=== PATIENT | female | born 1995 | race African-American/Black ===

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

== ENCOUNTER 2017-04-05 20:00 | Emergency (ER) | payer BC, OTHER ==
[~2017-04-05] VITALS: Ht 180.3 cm; Wt 117.0 kg
[2017-04-05 20:02] VITALS: BP 167/114; PULSE 89; RESP 14; TEMP 97.8; O2SAT 100
[2017-04-05] MEDS ORDERED: ALPR0.5T3 PO (20:15)
[2017-04-05] MEDS ORDERED: BUPR75TA PO (20:15)
[2017-04-05] MEDS ORDERED: CLON.5 PO (20:15)
--- NOTE | 2017-04-05 21:05 | PD ---
HPI Chief Complaint: Musculoskeletal Complaint Time Seen by Provider: 21:00 Travel History International Travel<30 days: No Contact w/Intl Traveler<30days: No Traveled to known affect area: No History of Present Illness HPI 21-year-old female presents to the emergency room for evaluation of right foot pain and swelling that occurred after tripping over an extension cord earlier today. Patient states she felt her toes bend all the way back and scraped her leg on the floor. She denies any other injuries. Pain is localized to the right lateral side. Denies ankle pain or swelling. She was able to immediately walk on it but throughout the day the pain and swelling have worsened. She has not taken anything for her symptoms. She has not applied ice. Denies chronic medical conditions or daily medications. PFSH Past Medical History Asthma: Yes Bipolar Disorder: Yes Anxiety: Yes Depression: Yes Developmental Delay: No Diminished Hearing: No Insomnia: Yes Psychiatric: Yes (HX OF PALAFOX ACT ) Respiratory: Yes Immunizations Current: Yes Tetanus Vaccination: > 5 Years Influenza Vaccination: No ?: Not LMP: 04-10=17 Menopausal: No : 0 Past Surgical History Surgical History: No Previous Surgery Social History Alcohol Use: No Tobacco Use: Yes (10 cig) Substance Use: Yes (MARIJUANA) Allergies-Medications (Allergen,Severity, Reaction): Coded Allergies: No Known Allergies (Verified , 04/05/17) Reported Meds & Prescriptions Reported Meds & Active Scripts Active Ibuprofen 800 Mg Tab 800 Mg PO Q8H PRN Reported Klonopin (Clonazepam) 0.5 Mg Tab 0.5 Mg PO HS Bupropion HCl 75 Mg Tab 75 Mg PO DAILY Alprazolam 0.5 Mg Tab 0.5 Mg PO Q8H PRN Fluoxetine (Fluoxetine HCl) 20 Mg Tab 20 Mg PO DAILY Review of Systems Except as stated in HPI: all other systems reviewed are Neg Physical Exam Narrative GENERAL: Well-nourished, obese female in no acute distress. Afebrile. SKIN: Warm and dry. No obvious erythema or ecchymosis. HEAD: Normocephalic. EYES: No scleral icterus. No injection or drainage. NECK: Supple, trachea midline. No JVD or lymphadenopathy. CARDIOVASCULAR: Regular rate and rhythm without murmurs, gallops, or rubs. RESPIRATORY: Breath sounds equal bilaterally. No accessory muscle use. MUSCULOSKELETAL: No cyanosis. Mild to moderate edema of the right lower extremity. Less than 2 second capillary refill distally. 2+ dorsalis pedis pulse. Limited range of motion of the foot secondary to pain. Extreme tenderness to palpation of the fifth metatarsal and top of the foot. No bony tenderness to palpation of the medial or lateral malleolus. Data Data Last Documented VS Vital Signs Date Time Temp Pulse Resp B/P Pulse Ox O2 Delivery O2 Flow Rate FiO2 04/05/17 20:02 97.8 89 14 167/114 100 Orders Foot, Complete ([id number]) (04/05/17 ) Acetamin-Hydrocod 325-5 Mg ([place] 5-325 (04/05/17 21:30) Crutches (04/05/17 21:28) ^ Oliver Bandage (04/05/17 21:28) Ibuprofen (Motrin) (04/05/17 21:30) MDM Medical Decision Making Medical Screen Exam Complete: Yes Emergency Medical Condition: Yes Medical Record Reviewed: Yes Differential Diagnosis Fracture versus sprain versus strain versus contusion Narrative Course 21-year-old female presents to the emergency room for evaluation of right foot pain and swelling after tripping earlier today. Patient hyperextended her toes upon falling. Physical exam reveals obvious erythema or ecchymosis. There is significantly increased warmth of the right foot moderate edema localized over the top of the foot and under the right lateral malleolus. No tenderness to palpation of the medial or lateral malleoli. Less than 2 second capillary refill distally and 2+ dorsalis pedis pulse. Normal sensation distally. Full range of motion secondary to pain. X-ray of the foot is negative for acute bony abnormality. History and physical exam consistent with sprain. Patient placed in Oliver wrap and discharged with orthopedic instructions, crutches, and prescription for ibuprofen. Told to follow up with the primary care physician or return to the emergency room for worsening symptoms. She understands and agrees to plan. Diagnosis Primary Impression: Right foot sprain Qualified Code: S93.601A - Right foot sprain, initial encounter Referrals: Primary Care Physician Patient Instructions: Foot Sprain (ED), General Instructions Additional Instructions: Rest and drink plenty of fluids. No weightbearing for the first and bear weight as tolerated. Take ibuprofen with food as directed, as needed for pain. Apply ice to the affected area for 20 minutes at a time, as needed for pain and swelling. Follow-up with a primary care physician. Return to the emergency room for worsening symptoms. Med/Other Pt SpecificInfo: Prescription(s) given Scripts Ibuprofen 800 Mg [id number] Mg PO Q8H PRN (Pain/Inflammation) #21 TAB Ref 0 Prov:Lobito Sosa MD 04/05/17 Disposition: 01 DISCHARGE HOME Condition: Stable Cathryn Gunter April 05, 2017 21:05
--- NOTE | 2017-04-05 21:20 | RADHPO ---
EXAM DATE/TIME: 04/05/2017 21:00 [facility] COMPARISON: No previous studies available for comparison. INDICATIONS : Right lateral foot pain post fall. MEDICAL HISTORY : None. SURGICAL HISTORY : None. ENCOUNTER: Initial ACUITY: 1 day PAIN SCORE: 8/10 LOCATION: Right lateral foot FINDINGS: Three view examination of the right foot demonstrates no soft tissue swelling, dislocation, or fractu re. The tarsal bones appear intact. The interphalangeal and metatarsophalangeal joints are intact. The calcaneus is intact. Bony mineralization is normal. CONCLUSION: No fracture or subluxation of the right foot. Rodrigue Rizzo MD on April 05, 2017 at 21:17 Board Certified Radiologist. This report was verified electronically.
[2017-04-05] MEDS ORDERED: ACETAMINOPHEN/HYDROcodone 325 MG/5 MG TAB PO ONE (21:30)
[2017-04-05] MEDS ORDERED: IBUPROFEN 800 MG TAB PO ONE (21:30)
[2017-04-05] MEDS ORDERED: IBUP800T23 PO (21:32)
== END 2017-04-05 22:16 | disposition home or self-care (01) ==
LOC: PHEFT 20:00
DX: S93.601A Unspecified sprain of right foot, initial encounter (principal); J45.909 Unspecified asthma, uncomplicated; F17.210 Nicotine dependence, cigarettes, uncomplicated
CPT/HCPCS: 73630; 99283; E0113

== ENCOUNTER 2017-04-11 07:16 | Emergency (ER) | payer BC ==
[~2017-04-11] VITALS: Ht 182.9 cm; Wt 120.5 kg
[~2017-04-11 07:16] MED LIST changes: +ALPR0.5T3 PO; +BUPR75TA PO; +CLON.5 PO; -DEXT5CAP3 PO; +IBUP800T23 PO; -LORA-392 PO; -PROT40TA PO; -TRAM50TA PO; -TYLE325T PO
[2017-04-11 07:31] VITALS: BP 140/98; PULSE 92; RESP 16; TEMP 98.9; O2SAT 100
--- NOTE | 2017-04-11 07:39 | PD ---
HPI Chief Complaint: Complaint Time Seen by Provider: 07:38 Travel History International Travel<30 days: No Contact w/Intl Traveler<30days: No Traveled to known affect area: No History of Present Illness HPI 21-year-old female presents to the emergency Department with complaint of dysuria, urgency, frequency 2 days. Denies hematuria. Denies abdominal pain, low back pain. Denies fever, vomiting. Denies vaginal discharge, odor, itch. Has not taken any medications or tried any treatments to alleviate her symptoms. No known relieving or aggravating factors. Last menstrual period was March 11. Is sexually active and no contraception use. No known allergies. Has no other medical complaints. No other modifying factors or associated signs and symptoms. PFSH Past Medical History Asthma: Yes Bipolar Disorder: Yes Anxiety: Yes Depression: Yes Developmental Delay: No Diminished Hearing: No Insomnia: Yes Psychiatric: Yes (HX OF PALAFOX ACT ) Respiratory: Yes Immunizations Current: Yes ?: Not LMP: 03/11/17 Menopausal: No : 0 Social History Alcohol Use: No Tobacco Use: Yes (10 cig) Substance Use: Yes (MARIJUANA) Allergies-Medications (Allergen,Severity, Reaction): Coded Allergies: No Known Allergies (Verified , 04/11/17) Reported Meds & Prescriptions Reported Meds & Active Scripts Active Pyridium (Phenazopyridine HCl) 100 Mg Tab 100 Mg PO Q8H PRN Keflex (Cephalexin) 500 Mg Cap 500 Mg PO Q12H 7 Days Ibuprofen 800 Mg Tab 800 Mg PO Q8H PRN Reported Klonopin (Clonazepam) 0.5 Mg Tab 0.5 Mg PO HS Bupropion HCl 75 Mg Tab 75 Mg PO DAILY Alprazolam 0.5 Mg Tab 0.5 Mg PO Q8H PRN Fluoxetine (Fluoxetine HCl) 20 Mg Tab 20 Mg PO DAILY Review of Systems Except as stated in HPI: all other systems reviewed are Neg Physical Exam Narrative GENERAL: Well-nourished, well-developed female female patient, in no acute distress; afebrile, nontoxic-appearing SKIN: Warm and dry. No rash. HEAD: Atraumatic. Normocephalic. EYES: Pupils equal and round. No scleral icterus. No injection or drainage. ENT: Mucosa pink and moist. NECK: Trachea midline. CARDIOVASCULAR: Regular rate. RESPIRATORY: No accessory muscle use. GASTROINTESTINAL: Abdomen soft, non-tender, nondistended. Hepatic and splenic margins not palpable. Bowel sounds are active 4 quadrants. Bladder nontender and nondistended. MUSCULOSKELETAL: No obvious deformities. No clubbing. No cyanosis. No edema. BACK: No CVA tenderness NEUROLOGICAL: Awake and alert. Oriented 3. No obvious cranial nerve deficits. Motor grossly within normal limits. Normal speech. Moves all extremities. 5/5 strength to all extremities. PSYCHIATRIC: Appropriate mood and affect; insight and judgment normal. Data Data Last Documented VS Vital Signs Date Time Temp Pulse Resp B/P Pulse Ox O2 Delivery O2 Flow Rate FiO2 04/11/17 07:31 98.9 92 16 140/98 100 Room Air Orders Urinalysis - C+S If Indicated (04/11/17 07:37) Ed Urine Pregnancytest Poc (04/11/17 07:42) Urine Culture (04/11/17 07:42) Labs Laboratory Tests Test 04/11/17 07:42 Urine Color YELLOW Urine Turbidity HAZY Urine pH 6.0 Urine Specific [place] 1.025 Urine Protein 30 mg/dL Urine Glucose (UA) NEG mg/dL Urine Ketones NEG mg/dL Urine Occult Blood SMALL Urine Nitrite NEG Urine Bilirubin NEG Urine Urobilinogen LESS THAN 2.0 MG/DL Urine Leukocyte Esterase LARGE Urine RBC 6 /hpf Urine WBC 139 /hpf Urine Squamous Epithelial 4 /hpf Cells Urine Bacteria FEW /hpf Urine Mucus FEW /lpf Microscopic Urinalysis Comment CULTURE INDICATED MDM Medical Decision Making Medical Screen Exam Complete: Yes Emergency Medical Condition: Yes Medical Record Reviewed: Yes Differential Diagnosis Cystitis, urinary tract infection, pyelonephritis Narrative Course 21-year-old female with dysuria. Denies vaginal symptoms. Denies fever, vomiting. Last menstrual period March 11. Is sexually active and no contraception use. Urine negative. Urinalysis ordered. 0854: Urinalysis was signs of infection. Urine culture pending. Keflex and Pyridium prescribed for home. Patient verbalizes understanding and agreement with treatment plan. Patient is medically cleared and stable for discharge. Discussed reasons to return to the emergency department. Instructed patient to follow up with primary care provider. Patient agrees with treatment plan. The patients vital signs are stable and the patient is stable for outpatient follow- up and treatment. Patient discharged home, stable and in no acute distress. Diagnosis Primary Impression: Urinary tract infection Qualified Code: N39.0 - Urinary tract infection without hematuria, site unspecified Referrals: Primary Care Physician Patient Instructions: General Instructions, Urinary Tract Infection in Women ( ED) Departure Forms: School Release, Return to School Date: April 11, 2017 Tests/Procedures, Work Release Enter return to work date: April 11, 2017 Additional Instructions: Take antibiotics as prescribed and complete full course Take Pyridium for bladder spasms: Pyridium will turn your urine bright orange Drink plenty of fluids Maintain good personal hygiene Follow-up with primary care provider Return to the emergency department immediately with worsening of symptoms Med/Other Pt SpecificInfo: Prescription(s) given Scripts Phenazopyridine (Pyridium)100 Mg [id number] Mg PO Q8H PRN (DYSURIA) #10 TAB Ref 0 Prov:Dulce Contreras 04/11/17 Cephalexin (Keflex)500 Mg [id number] Mg PO Q12H 7 Days Ref 0 Prov:Dulce Contreras 04/11/17 Disposition: 01 DISCHARGE HOME Condition: Stable Dulce Contreras April 11, 2017 07:39
[2017-04-11] MEDS ORDERED: PHEN0.4T PO (07:46)
[2017-04-11] MEDS ORDERED: CEPH-460 PO (07:46)
[2017-04-11 08:38] LABS: BACTERIA, URINE FEW /hpf; BLOOD, URINE SMALL (NEG); COMMENT (UR) CULTURE INDICATED; CULTURE IF INDICATED CULTURE INDICATED; GLUCOSE,URINE NEG (NEG); KETONE, URINE NEG (NEG); MUCUS URINE FEW /lpf (OCC); NITRITE,URINE NEG (NEG); SQUAMOUS EPITHELIAL CELL URINE 4 /hpf (0-5); URINE COLOR YELLOW (YELLW/STRAW)
== END 2017-04-11 09:12 | disposition home or self-care (01) ==
LOC: NEPK 07:16
DX: N39.0 Urinary tract infection, site not specified (principal); B96.20 Unspecified Escherichia coli [E. coli] as the cause of diseases classified elsewhere; Z72.0 Tobacco use; F12.90 Cannabis use, unspecified, uncomplicated
CPT/HCPCS: 81001; 84703; 87077; 87086; 87186; 99283

== ENCOUNTER 2017-06-07 05:22 | Inpatient (IN) | payer BC ==
[~2017-06-07] VITALS: Ht 182.9 cm; Wt 113.2 kg
[2017-06-07] VITALS (12 sets, daily range): BP systolic 89–161; BP diastolic 53–104; PULSE 88–122; RESP 16–24; TEMP 97.8–99.5; O2SAT 73–100
[~2017-06-07 05:22] MED LIST changes: +CEPH-460 PO; +PHEN0.4T PO
[2017-06-07] MEDS ORDERED: NALOXONE HCL 2 MG/2 ML VIAL ONE (05:23)
[2017-06-07] MEDS ORDERED: NALOXONE HCL 0.4 MG/ML AMP IV PUSH ONE (05:45)
[2017-06-07] MEDS ORDERED: RESP: ALBUTEROL 2.5 MG/IPRATROPIUM 0.5 MG NEB (SCH) NEB ONE (05:45)
[2017-06-07] MEDS ORDERED: SODIUM CHLOR 0.9% 1000 ML INJ 1,000 ML IV ONE (05:45)
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
[2017-06-07 09:08] LABS: BASOPHIL # 0.1 TH/MM3 (0-0.2); BASOPHIL % 0.2 % (0.0-2.0); EOSINOPHIL # 0.1 TH/MM3 (0-0.4); EOSINOPHIL % 0.3 % (0.0-4.0); HEMATOCRIT 39.5 % (35.0-46.0); HEMO FLAGS DIFF FINAL; LYMPH % 11.5 % (9.0-44.0); LYMPHOCYTE # 2.9 TH/MM3 (1.0-4.8); MEAN CELL VOLUME 83.1 FL (80.0-100.0); MEAN CORPUSCULAR HEMOGLOBIN 25.2 PG (27.0-34.0); MEAN CORPUSCULAR HGB CONC 30.4 % (32.0-36.0); PLATELET COUNT 155 TH/MM3 (150-450); RED BLOOD COUNT 4.75 MIL/MM3 (4.00-5.30); RED CELL DISTRIBUTION WIDTH 13.7 % (11.6-17.2); WHITE BLOOD COUNT 25.3 TH/MM3 (4.0-11.0)
--- NOTE | 2017-06-07 09:30 | PD ---
Physical Exam Date Seen by Provider: Jun 07, 2017 Time Seen by Provider: 07:00 Narrative Patient was signed out to me by Dr. Adkins at 7 AM at change of shift. We are waiting laboratory tests. The patient comes in after reportedly snorting heroin. 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 Apparently her O2 sats were low and she received 0.4 mg of Narcan. This brought her O2 saturations to 93%. She received a second dose of IVD Narcan at 0.4 mg. She did wake up and reported that she had been using the drugs as above. She denies any fevers, chills. She denies any previous health problems. She was noted to be in atrial fibrillation with a rate of 110. Her blood pressure was also low when she initially arrived. She received 1 L of IVD fluids. She is receiving her second at this time. Data Data Last Documented VS Vital Signs Date Time Temp Pulse Resp B/P Pulse Ox O2 Delivery O2 Flow Rate FiO2 06/07/17 10:00 88 18 106/71 100 Non-Rebreather 15 06/07/17 05:48 100 06/07/17 05:26 97.8 Orders Naloxone Inj (Narcan Inj) (06/07/17 05:23) Naloxone Inj (Narcan Inj) (06/07/17 05:45) Albuterol-Ipratropium Neb (Duoneb Neb) (06/07/17 05:45) Sodium Chlor 0.9% 1000 Ml Inj (Ns 1000 M (06/07/17 05:45) Electrocardiogram (06/07/17 05:23) Complete Blood Count With Diff (06/07/17 07:03) Comprehensive Metabolic Panel (06/07/17 07:03) Blood Culture (06/07/17 07:03) Troponin I (06/07/17 07:03) Thyroid Stimulating Hormone (06/07/17 07:03) Insulin Human Regular Inj (Novolin R Inj (06/07/17 10:15) Beta Hcg (Quant/Titer) (06/07/17 10:14) Place In Observation (06/07/17 ) Vital Signs (Adult) Q4H (06/07/17 10:18) Commercial Lending Relationship Manager / Telemetry .CONTINUOUS (06/07/17 10:18) Diet 1800 Ada Cons Carb (06/07/17 Lunch) Sodium Chlor 0.9% 1000 Ml Inj (Ns 1000 M (06/07/17 10:18) Sodium Chloride 0.9% Flush (Ns Flush) (06/07/17 10:30) Sodium Chloride 0.9% Flush (Ns Flush) (06/07/17 21:00) Basic Metabolic Panel (Bmp) (06/08/17 06:00) Complete Blood Count With Diff (06/08/17 06:00) Creatine Kinase (Cpk) (06/07/17 10:18) Creatine Kinase (Cpk) (06/07/17 16:18) Troponin I (06/07/17 10:18) Troponin I (06/07/17 16:18) Hepatic Functional Panel (06/08/17 06:00) Heparin Inj (Heparin Inj) (06/07/17 10:30) Naloxone Inj (Narcan Inj) (06/07/17 10:30) Docusate Sodium-Senna (Danya-Colace) (06/07/17 21:00) Magnesium Hydroxide Liq (Milk Of Magnesi (06/07/17 10:30) Sennosides (Senokot) (06/07/17 10:30) Bisacodyl Supp (Dulcolax Supp) (06/07/17 10:30) Lactulose Liq (Lactulose Liq) (06/07/17 10:30) Hemoglobin (Hgb) A1c (06/07/17 10:22) Labs Laboratory Tests Test 06/07/17 06:45 White Blood Count 25.3 TH/MM3 Red Blood Count 4.75 MIL/MM3 Hemoglobin 12.0 GM/DL Hematocrit 39.5 % Mean Corpuscular Volume 83.1 FL Mean Corpuscular Hemoglobin 25.2 PG Mean Corpuscular Hemoglobin 30.4 % Concent Red Cell Distribution Width 13.7 % Platelet Count 155 TH/MM3 Mean Platelet Volume 11.5 FL Neutrophils (%) (Auto) 87.0 % Lymphocytes (%) (Auto) 11.5 % Monocytes (%) (Auto) 1.0 % Eosinophils (%) (Auto) 0.3 % Basophils (%) (Auto) 0.2 % Neutrophils # (Auto) 22.0 TH/MM3 Lymphocytes # (Auto) 2.9 TH/MM3 Monocytes # (Auto) 0.3 TH/MM3 Eosinophils # (Auto) 0.1 TH/MM3 Basophils # (Auto) 0.1 TH/MM3 CBC Comment DIFF FINAL Differential Comment Sodium Level 137 MEQ/L Potassium Level 3.6 MEQ/L Chloride Level 101 MEQ/L Carbon Dioxide Level 19.9 MEQ/L Anion Gap 16 MEQ/L Blood Urea Nitrogen 11 MG/DL Creatinine 1.55 MG/DL Estimat Glomerular Filtration 52 ML/MIN Rate Random Glucose 337 MG/DL Calcium Level 8.8 MG/DL Total Bilirubin 0.4 MG/DL Aspartate Amino Transf 27 U/L (AST/SGOT) Alanine Aminotransferase 26 U/L (ALT/SGPT) Alkaline Phosphatase 101 U/L Troponin I 0.08 NG/ML Total Protein 7.3 GM/DL Albumin 3.3 GM/DL Thyroid Stimulating Hormone 0.749 uIU/ML 3rd Gen [facility] Medical Record Reviewed: Yes Supervised Visit with RYLEE: No Differential Diagnosis Acute overdose versus endocarditis versus sepsis Narrative Course 21-year-old female presents after snorting heroin. The patient was obtunded when EMS arrived. They gave her 0.4 Narcan which woke her up and brought her O2 sat up to 93%. The patient was still sedated when she arrived and was given another dose of 0.4 mg of Narcan. Initial cardiac EKG showed A. fib with RVR. Second one was repeated which showed A. fib with rate of 111. Labs show a glucose greater than 300. There is also acute kidney injury. She's been given a liter of IVD fluid followed by a second liter. Cardiac enzymes show a troponin of 0.08. White count was 25,000. Concern here is that this could be atypical presentation of endocarditis. She was afebrile when she arrived. The case was discussed with Dr. Anderson, [facility] hospitalist who covers for Dr. Barney Iniguez, patient's PCP. She'll be placed on cardiac telemetry given the cardiac findings and the elevated troponin. Intravenous antibiotics have been held at this point. Diagnosis Primary Impression: Opiate or related narcotic overdose Additional Impressions: Paroxysmal atrial fibrillation Hyperglycemia Acute kidney injury Elevated troponin Admitting Information Admitting Physician Requests: Admit Condition: Stable Zeb Fan MD Jun 07, 2017 09:30
[2017-06-07 09:31] LABS: ALT (GPT) 26 U/L (9-42)
[2017-06-07 09:38] LABS: ANION GAP 16 MEQ/L (5-15); AST (GOT) 27 U/L (16-38); BICARBONATE 19.9 MEQ/L (21.0-32.0); BLOOD UREA NITROGEN 11 MG/DL (7-18); CHLORIDE 101 MEQ/L (98-107); GLOMERULAR FILTRATION RATE 52 ML/MIN (>89); SODIUM (NA) 137 MEQ/L (136-145)
[2017-06-07 09:41] LABS: ALKALINE PHOSPHATASE 101 U/L (45-117); TOTAL BILIRUBIN ADULT 0.4 MG/DL (0.2-1.0)
[2017-06-07 09:50] LABS: POTASSIUM 3.6 MEQ/L (3.5-5.1)
[2017-06-07] MEDS ORDERED: INSULIN HUMAN REGULAR 1,000 UNITS/10 ML VIAL IV PUSH ONE (10:15)
[2017-06-07] MEDS ORDERED: MAGNESIUM HYDROXIDE SUSP 30 ML CUP PO PRN (10:30)
[2017-06-07] MEDS ORDERED: BISACODYL 10 MG SUPP RECTAL PRN (10:30)
[2017-06-07] MEDS ORDERED: SENNOSIDES 8.6 MG TAB PO PRN (10:30)
[2017-06-07] MEDS ORDERED: SODIUM CHLORIDE 0.9% FLUSH 10 ML FLUSH IV FLUSH PRN (10:30)
[2017-06-07] MEDS ORDERED: NALOXONE HCL 0.4 MG/ML AMP IV PRN (10:30)
[2017-06-07] MEDS ORDERED: DEXTROSE 50% IN WATER 50 ML VIAL(D50) IV PRN (10:30)
[2017-06-07] MEDS ORDERED: LACTULOSE SYRUP 20 GM/30 ML CUP PO PRN (10:30)
[2017-06-07] MEDS ORDERED: GLUCAGON 1 MG/ML VIAL OTHER PRN (10:30)
[2017-06-07 10:51] LABS: BETA HCG QUANT LESS THAN 1 MIU/ML (0-5)
[2017-06-07] MEDS: INSULIN ASPART SUPPLEMENTAL SCALE SQ SCH ×3 (11:00→21:00)
[2017-06-07] MEDS: SODIUM CHLOR 0.9% 1000 ML INJ 1,000 ML IV SCH ×2 (12:00→14:22)
--- NOTE | 2017-06-07 13:22 | EKG ---
Date Performed: 06/07/2017 Time Performed: 05:23:22 PTAGE: 21 years EKG: ATRIAL FIBRILLATION WITH RAPID VENTRICULAR RESPONSE WITH ABERRANT CONDUCTION OR VENTRICULAR PREMATURE COMPLEXES NONSPECIFIC ST & T-WAVE ABNORMALITY ABNORMAL RHYTHM ECG NO PREVIOUS TRACING DOCTOR: Marciano Ruiz Interpretating Date/Time 06/07/2017 13:21:54
--- NOTE | 2017-06-07 13:33 | EKG ---
Date Performed: 06/07/2017 Time Performed: 06:58:23 PTAGE: 21 years EKG: ATRIAL FIBRILLATION WITH RAPID VENTRICULAR RESPONSE NONSPECIFIC T-WAVE ABNORMALITY ABNORMAL RHYTHM ECG Compared to prior tracing no significant change PREVIOUS TRACING : 06/07/2017 05.23 DOCTOR: Marciano Ruiz Interpretating Date/Time 06/07/2017 13:30:53
--- NOTE | 2017-06-07 13:49 | EKG ---
Date Performed: 06/07/2017 Time Performed: 10:13:43 PTAGE: 21 years EKG: Sinus rhythm NORMAL ECG INTERPRETATION BASED ON A DEFAULT AGE OF 40 YEARS PREVIOUS TRACING : 06/07/2017 06.58 Compared to the prior study, normal sinus rhythm has replaced atrial fibrillation. DOCTOR: Marciano Ruiz Interpretating Date/Time 06/07/2017 13:48:09
[2017-06-07] MEDS: HEPARIN SODIUM - SQ 10,000 UNITS/ML VIAL SQ SCH (14:27)
--- NOTE | 2017-06-07 15:47 | MH ---
cc: SEAN IYER MD DATE OF ADMISSION 06/07/2017 CHIEF COMPLAINT Drug overdose. HISTORY OF PRESENT ILLNESS This is a 21-year-old -[place] obese female with past medical-surgical history significant for asthma, bipolar disorder, anxiety, depression, history of [place] in the past, came to the [facility] ER after heroin overdose. She admitted snorting heroin which she thinks was laced with fentanyl. Per the EMS they found her outside with low oxygen saturation. The patient was given 0.4 milligrams Narcan and oxygen saturation improved to 93%. There is no sign of trauma where she picked up. No other complaint. When I examined the patient the patient awake, alert, oriented x4, have no complaints or any problems and other than that nothing significant. PAST MEDICAL-SURGICAL HISTORY As dictated above. SOCIAL HISTORY Denies drinking. Smokes on a daily basis and abuses marijuana and also heroin. ALLERGIES NO KNOWN DRUG ALLERGIES. MEDICATIONS Include: 1. Clonidine 0.5 milligrams p.o. at bedtime. 2. Bupropion 75 milligrams p.o. daily. 3. Alprazolam 0.5 milligrams p.o. q. 8-hour p.r.n. anxiety. 4. Fluoxetine 20 milligrams p.o. daily. REVIEW OF SYSTEMS All of the review of system is negative at the time of examination. PHYSICAL EXAMINATION GENERAL: This is a 21-year-old female sitting on the bed, not in acute distress. VITAL SIGNS: Temperature 97.8, heart rate 88, respiration 20, blood pressure 124/78, O2 saturation 97% 3 liters nasal cannula. HEENT: Normocephalic, atraumatic. EOMI. PERRL. Oral mucosa moist. NECK: Neck is supple. No visible thyromegaly or neck mass. Trachea central. CVS: Regular rate and rhythm. LUNGS: Respirations clear to auscultation bilaterally. ABDOMEN: Soft, nontender. Bowel sounds. EXTREMITIES: No cyanosis or clubbing. Full range of motion of all extremities. NEURO: Awake, alert, oriented x4. No focal deficits. SKIN: Warm and dry. PSYCH: The patient has cooperative mood, affect is normal. LABORATORY DATA Include CBC showed WBC count 25.3 high, MCH is 25.2 low, MCHC is 30.4 low, MPV 11.5 high, neutrophil is 87.0 high. BMP totally unremarkable except for carbon dioxide 19.9 low, anion gap 16 high, creatinine 1.55 high, GFR 52 low, glucose random 337 high. Troponin-I 0.08 high, albumin 3.3 low. HCG quantitative less than 1. Blood culture done negative so far. ASSESSMENT/PLAN 1. This is a 21-year-old female who came to the ER diagnosed with loss of consciousness after heroin abuse. The patient got Narcan and after that the patient improved. 2. Hyperglycemia. Will check hemoglobin A1C and will monitor blood sugar. 3. Acute renal failure. Will give IV fluid and check BUN and creatinine. 4. Elevated troponin. I will check serial cardiac enzymes. Consult cardiology. 5. I will check UA and CT chest without contrast to rule out pneumonia. 6. DVT prophylaxis heparin 5000 units subcutaneous twice a day. 7. GI prophylaxis Protonix 40 milligrams p.o. daily. 8. We are going to manage the patient on a daily basis and make recommendation on a daily basis. Sean Iyer MD EA/LUIS ALBERTO /3:15 PM /3:34 PM
[2017-06-07] MEDS: FLUoxetine HCL 20 MG CAP PO SCH (17:20)
[2017-06-07] MEDS: cefTRIAXone INJ 1,000 MG in SODIUM CHLORIDE 0.9% INJ 100 ML IV SCH (17:20)
[2017-06-07] MEDS: buPROPion HCL 75 MG TAB PO SCH (17:20)
[2017-06-07 17:31] LABS: BLOOD, URINE NEG (NEG); COMMENT (UR) CULTURE INDICATED; CULTURE IF INDICATED CULTURE INDICATED; GLUCOSE,URINE NEG (NEG); KETONE, URINE NEG (NEG); NITRITE,URINE NEG (NEG); SQUAMOUS EPITHELIAL CELL URINE 6 /hpf (0-5); URINE COLOR YELLOW (YELLW/STRAW)
[2017-06-07 17:34] LABS: AMPHETAMINE, URINE NEG (NEG); BARBITURATES, URINE NEG (NEG); COCAINE, URINE NEG (NEG)
[2017-06-07 18:01] LABS: CREATINE KINASE 302 U/L (26-192)
[2017-06-07 18:07] LABS: ALKALINE PHOSPHATASE 76 U/L (45-117); ALT (GPT) 24 U/L (9-42); ANION GAP 8 MEQ/L (5-15); AST (GOT) 18 U/L (16-38); BICARBONATE 27.2 MEQ/L (21.0-32.0); BLOOD UREA NITROGEN 9 MG/DL (7-18); CHLORIDE 107 MEQ/L (98-107); GLOMERULAR FILTRATION RATE 104 ML/MIN (>89); SODIUM (NA) 142 MEQ/L (136-145); TOTAL BILIRUBIN ADULT 0.4 MG/DL (0.2-1.0)
--- NOTE | 2017-06-07 18:55 | RADRPT ---
EXAM DATE/TIME: 06/07/2017 18:41 [place] COMPARISON: No previous studies available for comparison. INDICATIONS : Evaluate for leukocytosis. RADIATION DOSE: 9.89 CTDIvol (mGy) MEDICAL HISTORY : None SURGICAL HISTORY : None. ENCOUNTER: Initial ACUITY: 1 day PAIN SCALE: 3/10 LOCATION: Bilateral chest TECHNIQUE: Volumetric scanning of the chest was performed. Using automated exposure control and adjustment of t he mA and/or kV according to patient size, radiation dose was kept as low as reasonably achievable to obtain optimal diagnostic quality images. DICOM format image data is available electronically for r eview and comparison. FINDINGS: LUNGS: Patchy airspace disease is present in both lungs consistent with an inflammatory process. PLEURAE: There is no pleural thickening or pleural effusion. MEDIASTINUM: The heart and great vessels demonstrate no acute abnormality. There is no mediastinal or hilar lymph adenopathy. AXILLAE: Within normal limits. No lymphadenopathy. MUSCULOSKELETAL: Within normal limits for patient age. MISCELLANEOUS: The visualized upper abdominal organs demonstrate no acute abnormality. CONCLUSION: Patchy airspace disease in both lungs with pain perihilar distribution consistent with an inflammator y process. Deangelo Moran MD FACR on June 07, 2017 at 18:51 Board Certified Radiologist. This report was verified electronically.
[2017-06-07] MEDS: SODIUM CHLORIDE 0.9% FLUSH 10 ML FLUSH IV FLUSH SCH (21:35)
[2017-06-07] MEDS: DOCUSATE SODIUM 50 MG/SENNA 8.6 MG TAB PO SCH (21:35)
[2017-06-07] MEDS: clonazePAM 0.5 MG TAB PO SCH (21:35)
[2017-06-08] VITALS (10 sets, daily range): BP systolic 116–127; BP diastolic 58–76; PULSE 101–114; RESP 18–20; TEMP 98.5–100.4; O2SAT 95–100
--- NOTE | 2017-06-08 00:19 | MB ---
cc: VISH GUO DO DATE OF CONSULTATION June 07, 2017 REASON FOR CONSULTATION Elevated troponin. HISTORY OF PRESENT ILLNESS Hyacinth Chris is a pleasant 21-year-old female who presented to [facility] Emergency Room by EMS after heroin overdose. She admits to snorting heroin which she thinks was laced with Fentanyl. Per EMS they found her outside unresponsive with oxygen level in the "teens." She was given Narcan and her oxygen saturation improved to 93%. During the workup she was found to have an elevated troponin of 0.11 and I was consulted for such. In seeing her she states that she has chest pain when she takes a deep breath in. She also notes that she feels like her lungs burn while breathing. Otherwise, she denies any other symptoms. PAST MEDICAL HISTORY 1. Asthma. 2. Bipolar disorder. 3. Anxiety/depression. PAST SURGICAL HISTORY Denies. ALLERGIES NO KNOWN DRUG ALLERGIES. MEDICATIONS 1. Bupropion 75 milligrams daily. 2. Fluoxetine 20 milligrams daily 3. Klonopin 0.5 milligrams every night. FAMILY HISTORY Denies premature coronary artery disease or sudden cardiac within the family. SOCIAL HISTORY Denies alcohol abuse. She does smoke around a pack of cigarettes a day. She also uses marijuana. Admits to snorting heroin. REVIEW OF SYSTEMS 14-systems were reviewed including osteopathic, pertinent positives and negatives above otherwise negative. PHYSICAL EXAMINATION VITAL SIGNS: Temperature 98.4, heart rate 100, blood pressure 128/70, respirations 24, pulse ox 94% on 3 liters. GENERAL: In general the patient appears well in no acute distress, alert, awake and oriented x3. HEENT: Extraocular muscles intact. Mucous membranes moist. NECK: Neck is supple. No JVD at 45 degrees. No carotid bruits heard bilaterally. Carotid upstroke is brisk in nature. HEART: Heart is regular rate and rhythm. Positive first and second heart sounds with no noted murmurs, gallops or rubs. LUNGS: Lungs have decreased breath sounds bilaterally. ABDOMEN: Soft, nontender, nondistended. No organomegaly noted. EXTREMITIES: Show no clubbing, cyanosis or edema. Femoral and distal pulses intact bilaterally. NEUROLOGICALLY: No focal deficits. SKIN: Warm, dry and intact. OSTEOPATHIC: No kyphoscoliosis, lordosis or paraspinal tender points. LABORATORY FINDINGS White blood cells 25.3, hemoglobin 12.0, hematocrit 39.5, platelets 155. Potassium 4.0, BUN 9, creatinine 0.85. Troponin 0.11. CARDIOLOGY STUDIES Electrocardiogram (June 07, 2017 at 06:58) atrial fibrillation with rapid ventricular response, nonspecific ST-T wave changes. IMPRESSION 1. Opioid overdose after snorting heroin, possibly laced with fentanyl. 2. Loss of consciousness after heroin abuse. 3. Hypoxia with EMS arriving and her pulse ox in the teens. 4. Acute kidney injury. 5. Elevated troponin most likely type 2 due to heroin overdose as well as hypoxia. 6. Leukocytosis. 7. CT of the chest showing patchy airspace disease most likely inflammatory in nature. 8. Tobacco abuse. 9. History of asthma. RECOMMENDATIONS 1. Ms. Chris appears to have presented with an opioid overdose on heroin leading to hypoxia with a pulse ox in the teens per EMS. 2. Her elevated troponins is most likely secondary to this. 3. We will obtain a 2-D echo to look at her overall left ventricular function, cardiac structure and possible valvulopathies. 4. As far as atrial fibrillation goes we will attempt to control her heart rate. She has a CHADS VASc score of 0 and we will plan on placing her on aspirin 81 milligrams daily. Her episode of atrial fibrillation is most likely due to her heroin overdose and hypoxia during the initial event. 5. Further recommendations will be made based on the hospital course. 6. Discussed with the patient for greater than 3 minutes about tobacco cessation for which the patient is not ready to quit. Thank you for allowing me to see Hyacinth Chris. If there are any questions please do not hesitate to call. Vish Guo DO VGP/EO /11:34 PM /12:10 AM
[2017-06-08 00:44] LABS: CKMB 3.1 NG/ML (0.5-3.6)
[2017-06-08] MEDS: HEPARIN SODIUM - SQ 10,000 UNITS/ML VIAL SQ SCH ×2 (01:01→11:47)
[2017-06-08] MEDS: INSULIN ASPART SUPPLEMENTAL SCALE SQ SCH ×4 (05:53→21:00)
[2017-06-08] MEDS: SODIUM CHLOR 0.9% 1000 ML INJ 1,000 ML IV SCH (05:54)
[2017-06-08 06:15] LABS: AUTOMATED NEUTROPHIL # 11.9 TH/MM3 (1.8-7.7); BASOPHIL % 0.1 % (0.0-2.0); EOSINOPHIL % 0.1 % (0.0-4.0); HEMATOCRIT 30.5 % (35.0-46.0); HEMO FLAGS DIFF FINAL; LYMPH % 10.3 % (9.0-44.0); LYMPHOCYTE # 1.4 TH/MM3 (1.0-4.8); MEAN CELL VOLUME 80.1 FL (80.0-100.0); MEAN CORPUSCULAR HEMOGLOBIN 25.3 PG (27.0-34.0); MEAN CORPUSCULAR HGB CONC 31.6 % (32.0-36.0); MONO % 4.6 % (0.0-8.0); NEUT % 84.9 % (16.0-70.0); PLATELET COUNT 136 TH/MM3 (150-450); RED BLOOD COUNT 3.81 MIL/MM3 (4.00-5.30); RED CELL DISTRIBUTION WIDTH 13.5 % (11.6-17.2)
[2017-06-08 06:34] LABS: BICARBONATE 27.1 MEQ/L (21.0-32.0); POTASSIUM 3.2 MEQ/L (3.5-5.1)
[2017-06-08 06:38] LABS: INDIRECT BILIRUBIN 0.5 MG/DL (0.0-0.8); TOTAL BILIRUBIN ADULT 0.7 MG/DL (0.2-1.0)
[2017-06-08] MEDS: FLUoxetine HCL 20 MG CAP PO SCH (08:01)
[2017-06-08] MEDS: ASPIRIN 81 MG CHEW TAB CHEW SCH (08:01)
[2017-06-08] MEDS: buPROPion HCL 75 MG TAB PO SCH (08:01)
[2017-06-08] MEDS: SODIUM CHLORIDE 0.9% FLUSH 10 ML FLUSH IV FLUSH SCH ×2 (08:01→21:03)
[2017-06-08] MEDS: DOCUSATE SODIUM 50 MG/SENNA 8.6 MG TAB PO SCH ×2 (08:01→21:03)
[2017-06-08] MEDS ORDERED: POTASSIUM CHLORIDE 25 MEQ EFFERVESCENT TAB PO ONE (10:00)
--- NOTE | 2017-06-08 10:59 | HHI.PR ---
Subjective Remarks Resting in bed Awake Low , decreased air volumes Fever 99, low-grade Family in room but patient does not want anyone to discuss her drug problems ( Sofia Dsouza) Objective Objective Results - Vital Signs Date Time Temp Pulse Resp B/P Pulse Ox O2 Delivery O2 Flow Rate FiO2 06/08/17 10:28 Nasal Cannula Humidified 06/08/17 09:00 104 06/08/17 08:00 99.0 101 18 126/58 100 06/08/17 04:00 98.5 106 18 116/58 97 06/08/17 00:00 98.6 101 18 117/59 99 06/07/17 20:08 101 06/07/17 20:00 Nasal Cannula 4.00 06/07/17 20:00 99.3 110 20 114/72 99 06/07/17 16:00 98.4 100 24 128/70 94 06/07/17 14:00 99.5 101 24 103/55 93 06/07/17 12:34 88 20 124/78 97 Nasal Cannula 3 I/O 06/07/17 06/07/17 06/07/17 06/08/17 06/08/17 06/08/17 07:00 15:00 23:00 07:00 15:00 23:00 Intake Total 0 ml 694 ml 683 ml Balance 0 ml 694 ml 683 ml Intake Oral 240 ml IV Total 0 ml 694 ml 443 ml # Voids 1 # Bowel Movements 0 (Sofia Dsouza) Result Diagram: 06/08/17 0551 06/08/17 0551 ROS General: Fatigue, Weakness, Other (10 point ROS done positives noted) Cardiac: Chest Pain (atypical with movement and soreness) Pulmonary: Cough (states brown sputum), SOB (mild at rest and exertional) Neuro/MS: Other (heroin overdose) (Sofia Dsouza) Physical Exam Physical Exam PHYSICAL EXAMINATION GENERAL: This is a well-developed, mildly obese female resting in the bed She is alert and awake, HEAD: Normocephalic Facial features appear symmetric. OROPHARYNGEAL: Oropharynx without erythema or edema., States does cough up some brown sputum NECK: Supple. Trachea midline without deviation. CARDIAC: Irregular rhythm rhythm, tachycardia rate borderline rate, S1 and S2 are heard, distant LUNGS: Diminished to auscultation bilaterally. Low volumes ABDOMEN: Soft, nontender, no organomegaly or masses. Bowel sounds are heard in all four quadrants. EXTREMITIES: No edema. Pulses equal bilateral. NEUROLOGICAL: Patient mood and affect appropriate. Speech is clear SKIN:Warm and moist (Sofia Dsouza) A/P Assessment and Plan Vital signs reviewed, low-grade temp 99, still has irregular heart rhythm heart rate 101, exertional dyspnea mild Labs reviewed, hypokalemia, treated with oral K, will recheck her BMP in the morning, WBC count down to 14, leukocytosis Anemia mild, unspecified so far and a 21-year-old Chest pain atypical, states increased pain with movement, sore to touch, appreciate cardiac input and consult, 2-D echo pending Exertional dyspnea, air volumes low, diminished breath sounds, encouraged to turn cough and deep breathe, dual nebs encouraged, wearing O2 per nasal cannula and desats according to nurse when off of oxygen briefly. Mild cough, patient states brown sputum, will culture sputum, chest CT shows patchy airspace disease , inflammatory versus infectious, currently on Rocephin IV Heroin opioid overdose, patient is alert answering questions appropriately, family is in the room, has already told nurse she does not want her family to know what's going on with her. Obesity mild, encourage patient to be out of bed and to increase her exercise and nutrition Hyperglycemia, Accu-Cheks and monitoring of her blood sugar Encourage patient to be out of bed in chair, evaluate her shortness of breath and symptoms DVT prophylaxis PUD prophylaxis (Sofia Dsouza) Assessment and Plan seen, examined by myself, Dr Brown, today Discussed with patient Discussed with nurse Continue antibiotics discontinue IV fluids Replace potassium and follow levels Discussed with mid level provider The exam, history, and the medical decision-making described in the above note were completed with the assistance of the mid-level provider. I reviewed the findings presented. I attest that I had a [id number] encounter with the patient on the same day, and personally performed and documented my assessment and findings in the medical record. (Ghada Brown MD) Sofia Dsouza Jun 08, 2017 10:59 Ghada Brown MD Jun 08, 2017 18:11
[2017-06-08] MEDS: RESP: ALBUTEROL 2.5 MG/IPRATROPIUM 0.5 MG NEB (SCH) NEB ×3 (12:37→19:36)
--- NOTE | 2017-06-08 12:53 | PD.CARD.PN ---
Subjective Subjective Remarks Chest pain less, only occurring with deep breaths and movement Shortness of breath somewhat better, coughing up dark brown sputum Objective Medications Current Medications Medications (Trade) Dose Ordered Sig/Francia Route Start Time Stop Time Status Last Admin (NS 1000 ml Inj) 1,000 ml @ 50 mls/hr Q20H IV 06/07/17 12:00 06/08/17 05:54 (NS Flush) 2 ml UNSCH PRN IV FLUSH 06/07/17 10:30 (NS Flush) 2 ml BID IV FLUSH 06/07/17 21:00 06/08/17 08:01 (Heparin Inj) 5,000 units Q12H SQ 06/07/17 13:00 06/08/17 11:47 (Narcan Inj) 0.4 mg UNSCH PRN IV 06/07/17 10:30 (Danya-Colace) 1 tab BID PO 06/07/17 21:00 06/08/17 08:01 (Milk Of Magnesia Liq) 30 ml Q12H PRN PO 06/07/17 10:30 (Senokot) 17.2 mg Q12H PRN PO 06/07/17 10:30 (Dulcolax Supp) 10 mg DAILY PRN RECTAL 06/07/17 10:30 (Lactulose Liq) 30 ml DAILY PRN PO 06/07/17 10:30 (D50w (Vial) Inj) 50 ml UNSCH PRN IV 06/07/17 10:30 (Glucagon Inj) 1 mg UNSCH PRN OTHER 06/07/17 10:30 (Wellbutrin) 75 mg DAILY PO 06/07/17 17:00 06/08/17 08:01 (KlonoPIN) 0.5 mg HS PO 06/07/17 21:00 06/07/17 21:35 Fluoxetine HCl 20 mg 20 mg DAILY PO 06/07/17 17:00 06/08/17 08:01 (Rocephin Inj/NS Inj) 100 ml @ 200 mls/hr Q24H IV 06/07/17 17:00 06/07/17 17:20 (Aspirin Chew) 81 mg DAILY CHEW 06/08/17 09:00 06/08/17 08:01 Vital Signs / I&O Vital Signs Date Time Temp Pulse Resp B/P Pulse Ox O2 Delivery O2 Flow Rate FiO2 06/08/17 12:00 99.6 105 18 120/64 98 06/08/17 10:28 Nasal Cannula Humidified 06/08/17 09:00 104 06/08/17 08:00 99.0 101 18 126/58 100 06/08/17 04:00 98.5 106 18 116/58 97 06/08/17 00:00 98.6 101 18 117/59 99 06/07/17 20:08 101 06/07/17 20:00 Nasal Cannula 4.00 06/07/17 20:00 99.3 110 20 114/72 99 06/07/17 16:00 98.4 100 24 128/70 94 06/07/17 14:00 99.5 101 24 103/55 93 I/O 06/07/17 06/07/17 06/07/17 06/08/17 06/08/17 06/08/17 07:00 15:00 23:00 07:00 15:00 23:00 Intake Total 0 ml 694 ml 683 ml Balance 0 ml 694 ml 683 ml Intake Oral 240 ml IV Total 0 ml 694 ml 443 ml # Voids 1 # Bowel Movements 0 Physical Exam GENERAL: NAD, AAOx3 SKIN: Warm and dry. HEAD: Atraumatic. Normocephalic. EYES: Pupils equal and round. No scleral icterus. No injection or drainage. ENT: No nasal bleeding or discharge. Mucous membranes pink and moist. NECK: Trachea midline. No JVD. CARDIOVASCULAR: Regular rhythm, tachycardic, no murmurs noted RESPIRATORY: No accessory muscle use. Decreased breath sounds bilaterally GASTROINTESTINAL: Abdomen soft, non-tender, nondistended. Hepatic and splenic margins not palpable. MUSCULOSKELETAL: Extremities without clubbing, cyanosis, or edema. No obvious deformities. NEUROLOGICAL: Awake and alert. No obvious cranial nerve deficits. Motor grossly within normal limits. Five out of 5 muscle strength in the arms and legs. Normal speech. PSYCHIATRIC: Appropriate mood and affect; insight and judgment normal. Laboratory Laboratory Tests Test 06/07/17 06/07/17 06/07/17 06/08/17 14:45 17:13 23:40 05:51 Urine Color YELLOW Urine Turbidity HAZY Urine pH 6.0 Urine Specific [place] 1.015 Urine Protein NEG mg/dL Urine Glucose (UA) NEG mg/dL Urine Ketones NEG mg/dL Urine Occult Blood NEG Urine Nitrite NEG Urine Bilirubin NEG Urine Urobilinogen LESS THAN 2.0 MG/DL Urine Leukocyte Esterase MOD Urine WBC 20 /hpf Urine Squamous Epithelial 6 /hpf Cells Microscopic Urinalysis Comment CULTURE INDICATED Urine Opiates Screen NEG Urine Barbiturates Screen NEG Urine Amphetamines Screen NEG Urine Benzodiazepines Screen NEG Urine Cocaine Screen NEG Urine Cannabinoids Screen NEG Sodium Level 142 MEQ/L 141 MEQ/L Potassium Level 4.0 MEQ/L 3.2 MEQ/L Chloride Level 107 MEQ/L 106 MEQ/L Carbon Dioxide Level 27.2 MEQ/L 27.1 MEQ/L Anion Gap 8 MEQ/L 8 MEQ/L Blood Urea Nitrogen 9 MG/DL 8 MG/DL Creatinine 0.85 MG/DL 0.72 MG/DL Estimat Glomerular Filtration 104 ML/MIN 126 ML/MIN Rate Random Glucose 116 MG/DL 96 MG/DL Calcium Level 8.6 MG/DL 8.4 MG/DL Total Bilirubin 0.4 MG/DL 0.7 MG/DL Aspartate Amino Transf 18 U/L 13 U/L (AST/SGOT) Alanine Aminotransferase 24 U/L 19 U/L (ALT/SGPT) Alkaline Phosphatase 76 U/L 69 U/L Total Creatine Kinase 302 U/L 285 U/L Creatine Kinase MB 4.0 NG/ML 3.1 NG/ML Creatine Kinase MB % 1.3 % 1.1 % Troponin I 0.11 NG/ML 0.05 NG/ML Total Protein 6.9 GM/DL 6.5 GM/DL Albumin 3.1 GM/DL 2.9 GM/DL White Blood Count 14.0 TH/MM3 Red Blood Count 3.81 MIL/MM3 Hemoglobin 9.6 GM/DL Hematocrit 30.5 % Mean Corpuscular Volume 80.1 FL Mean Corpuscular Hemoglobin 25.3 PG Mean Corpuscular Hemoglobin 31.6 % Concent Red Cell Distribution Width 13.5 % Platelet Count 136 TH/MM3 Mean Platelet Volume 10.9 FL Neutrophils (%) (Auto) 84.9 % Lymphocytes (%) (Auto) 10.3 % Monocytes (%) (Auto) 4.6 % Eosinophils (%) (Auto) 0.1 % Basophils (%) (Auto) 0.1 % Neutrophils # (Auto) 11.9 TH/MM3 Lymphocytes # (Auto) 1.4 TH/MM3 Monocytes # (Auto) 0.6 TH/MM3 Eosinophils # (Auto) 0.0 TH/MM3 Basophils # (Auto) 0.0 TH/MM3 CBC Comment DIFF FINAL Differential Comment Direct Bilirubin 0.2 MG/DL Indirect Bilirubin 0.5 MG/DL Assessment and Plan Problem List: (1) Opiate or related narcotic overdose (2) Elevated troponin (3) Paroxysmal atrial fibrillation (4) Acute kidney injury (5) Hyperglycemia (6) Urinary tract infection (7) Chest wall pain Assessment and Plan 1) Heroin overdose, possibly laced with fentanyl with pulse ox extremely low per EMS 2) Minimally elevated troponin, secondary to hypoxia/heroin overdose Although 21, should rule out underlying CAD... eventual CTA coronary 3) PAF, CHADSVASc = 1, secondary to heroin overdose Will plan to place on ASA 81mg daily Currently sinus tachycardia 4) With brown sputum as well as chest pain/SOB, possible aspiration PNA vs pneumonitis? Vish Coleman DO Jun 08, 2017 12:53
--- NOTE | 2017-06-08 14:23 | ECHRPT ---
Indication: Elevated troponin CONCLUSIONS Normal left ventricular size and wall thickness. The left ventricular systolic function is normal wi th an estimated ejection fraction in the range of 60-65%. Left ventricular diastolic function parameters a re normal There is trace to mild tricuspid valve regurgitation. The estimated pulmonary arterial pressure is 37 mmHg. BP: 126 / 58 HR: 101 Rhythm: Sinus MEASUREMENTS (Male / Female) Normal Values Technical Quality:Good 2D ECHO LV Diastolic Diameter PLAX 4.3 cm 4.2 - 5.9 / 3.9 - 5.3 cm LV Systolic Diameter PLAX 3.0 cm IVS Diastolic Thickness 1.0 cm 0.6 - 1.0 / 0.6 - 0.9 cm LVPW Diastolic Thickness 1.0 cm 0.6 - 1.0 / 0.6 - 0.9 cm LV Relative Wall Thickness 0.5 LVOT Diameter 2.1 cm M-MODE Aortic Root Diameter MM 2.7 cm LA Systolic Diameter MM 4.0 cm LA Ao Ratio MM 1.5 AV Cusp Separation MM 1.9 cm DOPPLER AV Peak Velocity 159.0 cm/s AV Peak Gradient 10.1 mmHg LVOT Peak Velocity 139.0 cm/s LVOT Peak Gradient 7.7 mmHg AV Area Cont Eq pk 3.0 cm Mitral E Point Velocity 139.0 cm/s Mitral A Point Velocity 75.4 cm/s Mitral E to A Ratio 1.8 LV E' Lateral Velocity 18.3 cm/s Mitral E to LV E' Lateral Ratio 7.6 LV E' Septal Velocity 10.2 cm/s Mitral E to LV E' Septal Ratio 13.6 TR Peak Velocity 261.0 cm/s TR Peak Gradient 27.2 mmHg PV Peak Velocity 133.0 cm/s PV Peak Gradient 7.1 mmHg FINDINGS LEFT VENTRICLE Normal left ventricular size and wall thickness. The left ventricular systolic function is normal wi th an estimated ejection fraction in the range of 60-65%. Left ventricular diastolic function parameters a re normal. RIGHT VENTRICLE Normal right ventricular size and systolic function. LEFT ATRIUM The left atrial size is normal. RIGHT ATRIUM The right atrial size is normal. ATRIAL SEPTUM Normal atrial septal thickness without atrial level shunting by limited color doppler interrogation. AORTA The aortic root and proximal ascending aorta are normal in size on limited imaging. MITRAL VALVE Structurally normal mitral valve. No mitral valve stenosis or regurgitation. AORTIC VALVE Trileaflet aortic valve. No aortic valve stenosis or regurgitation. TRICUSPID VALVE There is trace to mild tricuspid valve regurgitation. The estimated pulmonary arterial pressure is 37 mmHg. PULMONARY VALVE The pulmonary valve is not well visualized. VESSELS The inferior vena cava is normal in size. PERICARDIUM No pericardial effusion. Hugh Palacio MD (Electronically Signed) Final Date:08 June 2017 14:21
[2017-06-08] MEDS ORDERED: AZITHROMYCIN 250 MG TAB PO SCH (16:00)
[2017-06-08] MEDS: cefTRIAXone INJ 1,000 MG in SODIUM CHLORIDE 0.9% INJ 100 ML IV SCH (16:59)
--- NOTE | 2017-06-08 17:17 | MB ---
cc: JUDE BAUER MD DATE OF CONSULTATION: 06/08/2017. REASON FOR CONSULTATION: Leukocytosis. REQUESTING PHYSICIAN: Dr. Sean Bond. HISTORY OF PRESENT ILLNESS: This is a 21-year-old black female who presented to the emergency department after she was found down in a motel room. The patient had snorted heroin and she was found to have a low oxygen saturation. She was given Narcan with improvement of oxygenation. She has some pain on the side of right of the face where she has swelling. She states that she fell on that side of the face. She does not recall the circumstances of the fall. In the emergency department, she was hypotensive with a blood pressure of 89/53. Her heart rate was 120. She had atrial fibrillation with rapid ventricular response. She was lethargic. Her white blood cell count was elevated at 25.3 with left shift. A CT scan of the chest was performed that showed patchy airspace disease in both lungs. The patient tells me that she is coughing up brown sputum. She states that she was not having any cough or sputum production before the incident. She reportedly has a history of IV drug abuse with heroin as well. PAST MEDICAL HISTORY: 1. Asthma in childhood. 2. Bipolar disorder. 3. Anxiety and depression. ALLERGIES: NO KNOWN DRUG ALLERGIES. MEDICATIONS: 1. Ceftriaxone. 2. Prozac. 3. Wellbutrin. 4. Klonopin. 5. Danya-Colace. 6. Aspirin. SOCIAL HISTORY: Positive marijuana use. Positive heroin, which she uses in the form of snorting. Positive tobacco. No alcohol. FAMILY HISTORY: Noncontributory. REVIEW OF SYSTEMS: CONSTITUTIONAL: No fever, no chills. HEAD, EYES, EARS, NOSE, THROAT: Pain in the left face. Swelling at the left face. No visual blurring or diplopia. No difficulty swallowing. No soreness of the throat. No nasal bleeding or discharge. CARDIOVASCULAR: No palpitations. Positive chest pain. RESPIRATORY: Significant for cough and sputum production. GASTROINTESTINAL: No nausea or vomiting or abdominal pain. No diarrhea. GENITOURINARY: No urgency, frequency or dysuria. MUSCULOSKELETAL: No diffuse muscle aches or pain. INTEGUMENTARY: No skin rash or itching. HEMATOPOIETIC: No easy bruising or bleeding. ENDOCRINE: No polyuria or polydipsia. NEUROLOGIC: Denies depression. PHYSICAL EXAMINATION: GENERAL: This is a moderately obese female who is in no acute distress. VITAL SIGNS: Temperature 99.6, blood pressure 124/64, respirations 18, heart rate 110. The patient's saturation is 97% on two liters oxygen via nasal cannula. HEAD, EYES, EARS, NOSE, THROAT: Th head has mild swelling at the left face at the cheek and there is a bruise also at the cheek and there is tenderness on palpation over the left cheek. Pupils reactive to light. No icterus. Oropharynx with moist mucosa without visible lesions. NECK: The neck is supple without adenopathy. LUNGS: Bilateral rhonchi. HEART: Regular S1 and S2. No audible murmurs, rubs or gallops. ABDOMEN: Bowel sounds present, soft, obese, nontender. RECTAL: Not performed. EXTREMITIES: No clubbing or cyanosis or edema. SKIN: No rash. NEUROLOGIC: Nonfocal. PSYCHIATRIC: Calm and cooperative. LABORATORY DATA: WBCs 14.0, platelet count 136,000, hemoglobin 9.6, 84% neutrophils. Creatinine 0.72, BUN 8, sodium 141. AST 13, ALT 19, alkaline phosphatase 69. Blood cultures show no growth. IMPRESSION: 1. Pneumonia probably secondary to aspiration in a patient who passed out around the time of using heroin in the form of snorting. 2. Leukocytosis secondary to pneumonia. RECOMMENDATIONS: 1. Obtain sputum sample for culture. 2. Continue ceftriaxone. 3. Add Zithromax. This can be administered p.o. 4. Monitor white blood cell count. 5. Monitor blood cultures. 6. Monitor clinical status. 7. The patient had abnormal urinalysis but a urine culture has mixed suzi and therefore additional antibiotics focused on treatment of a urinary tract infection is not necessary. Thank you this consultation. I will follow the patient's progress and make further recommendations upon followup. Jude Bauer MD FD/EVELYN /3:20 PM /4:52 PM ANTONINO
[2017-06-08] MEDS: clonazePAM 0.5 MG TAB PO SCH (21:03)
[2017-06-08] MEDS: POTASSIUM CHLORIDE 10 MEQ CONTROLLED RELEASE TAB PO SCH (21:04)
[2017-06-09] VITALS (11 sets, daily range): BP systolic 120–142; BP diastolic 65–90; PULSE 76–106; RESP 18–20; TEMP 97.9–100; O2SAT 94–99
[2017-06-09] MEDS: HEPARIN SODIUM - SQ 10,000 UNITS/ML VIAL SQ SCH ×2 (00:20→13:06)
[2017-06-09] MEDS: INSULIN ASPART SUPPLEMENTAL SCALE SQ SCH ×4 (06:12→21:00)
[2017-06-09 07:38] LABS: HEMATOCRIT 29.7 % (35.0-46.0); MEAN CELL VOLUME 79.8 FL (80.0-100.0); MEAN CORPUSCULAR HEMOGLOBIN 25.7 PG (27.0-34.0); MEAN CORPUSCULAR HGB CONC 32.2 % (32.0-36.0); PLATELET COUNT 134 TH/MM3 (150-450); RED BLOOD COUNT 3.72 MIL/MM3 (4.00-5.30); REVIEW FLAG FINAL; WHITE BLOOD COUNT 10.5 TH/MM3 (4.0-11.0)
[2017-06-09 07:58] LABS: BICARBONATE 25.8 MEQ/L (21.0-32.0); POTASSIUM 3.2 MEQ/L (3.5-5.1)
[2017-06-09] MEDS: RESP: ALBUTEROL 2.5 MG/IPRATROPIUM 0.5 MG NEB (SCH) NEB ×4 (08:30→20:40)
[2017-06-09] MEDS: DOCUSATE SODIUM 50 MG/SENNA 8.6 MG TAB PO SCH ×2 (08:53→21:30)
[2017-06-09] MEDS: POTASSIUM CHLORIDE 10 MEQ CONTROLLED RELEASE TAB PO SCH ×2 (08:54→21:30)
[2017-06-09] MEDS: FLUoxetine HCL 20 MG CAP PO SCH (08:54)
[2017-06-09] MEDS: SODIUM CHLORIDE 0.9% FLUSH 10 ML FLUSH IV FLUSH SCH ×2 (08:54→21:30)
[2017-06-09] MEDS: ASPIRIN 81 MG CHEW TAB CHEW SCH (08:54)
[2017-06-09] MEDS: buPROPion HCL 75 MG TAB PO SCH (08:54)
[2017-06-09] MEDS: ONDANSETRON HCL 4 MG/2 ML VIAL IV PUSH PRN (08:55)
[2017-06-09 10:43] LABS: HEMOGLOBIN A1a 0.8 %; HEMOGLOBIN Ao 84.9 %; HEMOGLOBIN F 0.9 %; HEMOGLOBIN P3 3.6 %
--- NOTE | 2017-06-09 11:54 | PD.CARD.PN ---
Subjective Subjective Remarks No chest pain Breathing somewhat better overall Objective Medications Current Medications Medications (Trade) Dose Ordered Sig/Francia Route Start Time Stop Time Status Last Admin (NS Flush) 2 ml UNSCH PRN IV FLUSH 06/07/17 10:30 (NS Flush) 2 ml BID IV FLUSH 06/07/17 21:00 06/09/17 08:54 (Heparin Inj) 5,000 units Q12H SQ 06/07/17 13:00 06/09/17 00:20 (Narcan Inj) 0.4 mg UNSCH PRN IV 06/07/17 10:30 (Danya-Colace) 1 tab BID PO 06/07/17 21:00 06/09/17 08:53 (Milk Of Magnesia Liq) 30 ml Q12H PRN PO 06/07/17 10:30 (Senokot) 17.2 mg Q12H PRN PO 06/07/17 10:30 (Dulcolax Supp) 10 mg DAILY PRN RECTAL 06/07/17 10:30 (Lactulose Liq) 30 ml DAILY PRN PO 06/07/17 10:30 (D50w (Vial) Inj) 50 ml UNSCH PRN IV 06/07/17 10:30 (Glucagon Inj) 1 mg UNSCH PRN OTHER 06/07/17 10:30 (Wellbutrin) 75 mg DAILY PO 06/07/17 17:00 06/09/17 08:54 (KlonoPIN) 0.5 mg HS PO 06/07/17 21:00 06/08/17 21:03 Fluoxetine HCl 20 mg 20 mg DAILY PO 06/07/17 17:00 06/09/17 08:54 (Rocephin Inj/NS Inj) 100 ml @ 200 mls/hr Q24H IV 06/07/17 17:00 06/08/17 16:59 (Aspirin Chew) 81 mg DAILY CHEW 06/08/17 09:00 06/09/17 08:54 (Zithromax) 500 mg Q24H PO 06/08/17 16:00 06/08/17 16:59 (KCl) 30 meq Q12HR PO 06/08/17 21:00 06/09/17 08:54 (Zofran Inj) 4 mg Q8HR PRN IV PUSH 06/09/17 09:00 06/09/17 08:55 Vital Signs / I&O Vital Signs Date Time Temp Pulse Resp B/P Pulse Ox O2 Delivery O2 Flow Rate FiO2 06/09/17 08:30 99 Nasal Cannula 3.00 06/09/17 08:00 100.0 106 18 142/79 96 06/09/17 05:15 99.3 102 20 120/67 97 06/09/17 04:00 Nasal Cannula 2.00 06/09/17 00:24 99.3 106 20 137/65 97 06/09/17 00:00 Nasal Cannula 2.00 06/08/17 21:33 100.4 114 20 127/70 95 06/08/17 20:09 108 06/08/17 20:00 Nasal Cannula 2.00 06/08/17 19:36 98 Nasal Cannula 2.00 06/08/17 16:00 99.7 102 18 127/76 95 06/08/17 15:09 96 Nasal Cannula 2.00 Humidified 06/08/17 12:36 98 Nasal Cannula 3.50 06/08/17 12:00 99.6 105 18 120/64 98 I/O 06/08/17 06/08/17 06/08/17 06/09/17 06/09/17 06/09/17 07:00 15:00 23:00 07:00 15:00 23:00 Intake Total 683 ml 1561 ml Balance 683 ml 1561 ml Intake Oral 240 ml 960 ml IV Total 443 ml 601 ml # Voids 1 2 2 1 # Bowel Movements 0 0 0 Physical Exam GENERAL: NAD, AAOx3 SKIN: Warm and dry. HEAD: Atraumatic. Normocephalic. EYES: Pupils equal and round. No scleral icterus. No injection or drainage. ENT: No nasal bleeding or discharge. Mucous membranes pink and moist. NECK: Trachea midline. No JVD. CARDIOVASCULAR: Regular rhythm, tachycardic, no murmurs noted RESPIRATORY: No accessory muscle use. Decreased breath sounds bilaterally GASTROINTESTINAL: Abdomen soft, non-tender, nondistended. Hepatic and splenic margins not palpable. MUSCULOSKELETAL: Extremities without clubbing, cyanosis, or edema. No obvious deformities. NEUROLOGICAL: Awake and alert. No obvious cranial nerve deficits. Motor grossly within normal limits. Five out of 5 muscle strength in the arms and legs. Normal speech. PSYCHIATRIC: Appropriate mood and affect; insight and judgment normal. Laboratory Laboratory Tests Test 06/09/17 06:02 White Blood Count 10.5 TH/MM3 Red Blood Count 3.72 MIL/MM3 Hemoglobin 9.6 GM/DL Hematocrit 29.7 % Mean Corpuscular Volume 79.8 FL Mean Corpuscular Hemoglobin 25.7 PG Mean Corpuscular Hemoglobin 32.2 % Concent Red Cell Distribution Width 13.0 % Platelet Count 134 TH/MM3 Mean Platelet Volume 11.0 FL Sodium Level 139 MEQ/L Potassium Level 3.2 MEQ/L Chloride Level 105 MEQ/L Carbon Dioxide Level 25.8 MEQ/L Anion Gap 8 MEQ/L Blood Urea Nitrogen 6 MG/DL Creatinine 0.63 MG/DL Estimat Glomerular Filtration 147 ML/MIN Rate Random Glucose 82 MG/DL Calcium Level 8.8 MG/DL Assessment and Plan Problem List: (1) Opiate or related narcotic overdose (2) Elevated troponin (3) Paroxysmal atrial fibrillation (4) Acute kidney injury (5) Hyperglycemia (6) Urinary tract infection (7) Chest wall pain Assessment and Plan 1) Heroin overdose, possibly laced with fentanyl with pulse ox extremely low per EMS 2) Minimally elevated troponin, secondary to hypoxia/heroin overdose Although 21, should rule out underlying CAD... eventual CTA coronary, but heart rates too high, con't to watch but unlikely to be underlying CAD 3) PAF, CHADSVASc = 1, secondary to heroin overdose Will plan to place on ASA 81mg daily Currently sinus tachycardia due to overall illness 4) With brown sputum as well as chest pain/SOB, possible aspiration PNA vs pneumonitis? ID following Vish Coleman DO Jun 09, 2017 11:54
--- NOTE | 2017-06-09 15:44 | HHI.PR ---
Subjective Remarks Resting in bed Awake Low , decreased air volumes, cough from brown to dark jade color Fever 100 Family in room but patient does not want anyone to discuss her drug problems ( Sofia Dsouza) Objective Objective Results - Vital Signs Date Time Temp Pulse Resp B/P Pulse Ox O2 Delivery O2 Flow Rate FiO2 06/09/17 13:08 130/80 Automatic Cuff 06/09/17 12:00 98.1 97 18 136/65 95 06/09/17 09:00 95 06/09/17 09:00 Nasal Cannula 2.00 06/09/17 08:30 99 Nasal Cannula 3.00 06/09/17 08:00 100.0 106 18 142/79 96 06/09/17 05:15 99.3 102 20 120/67 97 06/09/17 04:00 Nasal Cannula 2.00 06/09/17 00:24 99.3 106 20 137/65 97 06/09/17 00:00 Nasal Cannula 2.00 06/08/17 21:33 100.4 114 20 127/70 95 06/08/17 20:09 108 06/08/17 20:00 Nasal Cannula 2.00 06/08/17 19:36 98 Nasal Cannula 2.00 06/08/17 16:00 99.7 102 18 127/76 95 I/O 06/08/17 06/08/17 06/08/17 06/09/17 06/09/17 06/09/17 07:00 15:00 23:00 07:00 15:00 23:00 Intake Total 683 ml 1561 ml Balance 683 ml 1561 ml Intake Oral 240 ml 960 ml IV Total 443 ml 601 ml # Voids 1 2 2 1 # Bowel Movements 0 0 0 (Sofia Dsouza) Result Diagram: 06/09/17 0602 06/09/17 0602 ROS General: Fatigue, Weakness, Other (10 point ROS done, contact isolation) Pulmonary: SOB, Wheezing (mild) (Sofia Dsouza) Physical Exam Physical Exam PHYSICAL EXAMINATION GENERAL: This is a well-developed, female who appears to be in mild distress. She is alert and awake, anxious HEAD: Normocephalic buising on lt. cheek, mild edema OROPHARYNGEAL: Oropharynx NECK: Supple. Trachea midline without deviation. CARDIAC: Regular rhythm, regular rate, S1 and S2 are heard. LUNGS: Diminished to auscultation bilaterally. No wheeze, mild rhonchi, +sputum ABDOMEN: Soft, nontender, Bowel sounds are heard in all four quadrants. EXTREMITIES: no edema. Pulses equal bilateral. NEUROLOGICAL: Patient mood and affect appropriate. No focal deficit SKIN:Warm and moist (Sofia Dsouza) A/P Assessment and Plan Vital signs reviewed, temperature 100 today, some tachycardia noted this morning but down in the 90s this afternoon, exertional dyspnea moderate, wearing O2 all the time Labs reviewed, Anemia mild, unspecified so far and a 21-year-old Chest pain atypical, states increased pain with movement, sore to touch, appreciate cardiac input and consult, 2-D echo Exertional dyspnea, air volumes low, diminished breath sounds, encouraged to turn cough and deep breathe, duo nebs encouraged, wearing O2 per nasal cannula, still has exertional dyspnea but patient states improved Mild cough, patient states brown sputum initially now jade colored sputum ,chest CT shows patchy airspace disease, called this p.m. for positive sputum culture MRSA. Antibiotics changed to vancomycin IV, patient placed in contact isolation explained in detail to her and her family, chest x-ray done for comparisons Heroin opioid overdose, patient is alert answering questions appropriately, family is in the room, has already told nurse she does not want her family to know what's going on with her. Obesity mild, encourage activity out of bed up in chair and room Hyperglycemia, Accu-Cheks and monitoring of her blood sugar DVT prophylaxis PUD prophylaxis Discussed with nurse Discussed with patient and her family Discussed with Dr. Brown, seen on his behalf (Sofia Dsouza) Assessment and Plan seen, examined by myself, Dr Brown, today Discussed with patient MRSA found in sputum Started on intravenous vancomycin Discussed with mid level provider The exam, history, and the medical decision-making described in the above note were completed with the assistance of the mid-level provider. I reviewed the findings presented. I attest that I had a [id number] encounter with the patient on the same day, and personally performed and documented my assessment and findings in the medical record. (Ghada Brown MD) Sofia Dsouza Jun 09, 2017 15:44 Ghada Brown MD Jun 09, 2017 18:13
--- NOTE | 2017-06-09 16:25 | HHI.IDPN ---
Note Infectious Disease Note Patient notes that she coughed up a red glob of sputum this am. Feels better. Notes she still has chest pain but it is less. Afebrile. PAST MEDICAL HISTORY: 1. Asthma in childhood. 2. Bipolar disorder. 3. Anxiety and depression. ALLERGIES: NO KNOWN DRUG ALLERGIES. Current Medications Medications (Trade) Dose Ordered Sig/Francia Route PRN Reason Start Time Stop Time Status Last Admin Dose Admin Sodium Chloride (NS Flush) 2 ml UNSCH PRN IV FLUSH FLUSH AFTER USING IV ACCESS 06/07/17 10:30 Sodium Chloride (NS Flush) 2 ml BID IV FLUSH 06/07/17 21:00 06/09/17 08:54 Heparin Sodium (Porcine) (Heparin Inj) 5,000 units Q12H SQ 06/07/17 13:00 06/09/17 13:06 Naloxone HCl (Narcan Inj) 0.4 mg UNSCH PRN IV SEE LABEL COMMENTS 06/07/17 10:30 Senna/Docusate Sodium (Danya-Colace) 1 tab BID PO 06/07/17 21:00 06/09/17 08:53 Magnesium Hydroxide (Milk Of Magnesia Liq) 30 ml Q12H PRN PO MILD - MODERATE CONSTIPATION 06/07/17 10:30 Sennosides (Senokot) 17.2 mg Q12H PRN PO MODERATE - SEVERE CONSTIPATION 06/07/17 10:30 Bisacodyl (Dulcolax Supp) 10 mg DAILY PRN RECTAL SEVERE CONSITIPATION 06/07/17 10:30 Lactulose (Lactulose Liq) 30 ml DAILY PRN PO SEVERE CONSITIPATION 06/07/17 10:30 Dextrose (D50w (Vial) Inj) 50 ml UNSCH PRN IV HYPOGLYCEMIA-SEE COMMENTS 06/07/17 10:30 Glucagon (Glucagon Inj) 1 mg UNSCH PRN OTHER HYPOGLYCEMIA-SEE COMMENTS 06/07/17 10:30 Bupropion HCl (Wellbutrin) 75 mg DAILY PO 06/07/17 17:00 06/09/17 08:54 Clonazepam (KlonoPIN) 0.5 mg HS PO 06/07/17 21:00 06/08/17 21:03 Fluoxetine HCl 20 mg 20 mg DAILY PO 06/07/17 17:00 06/09/17 08:54 Ceftriaxone Sodium/Sodium Chloride (Rocephin Inj/NS Inj) 100 ml @ 200 mls/hr Q24H IV 06/07/17 17:00 06/08/17 16:59 Aspirin (Aspirin Chew) 81 mg DAILY CHEW 06/08/17 09:00 06/09/17 08:54 Azithromycin (Zithromax) 500 mg Q24H PO 06/08/17 16:00 06/08/17 16:59 Potassium Chloride (KCl) 30 meq Q12HR PO 06/08/17 21:00 06/09/17 08:54 Ondansetron HCl (Zofran Inj) 4 mg Q8HR PRN IV PUSH NAUSEA OR VOMITING 06/09/17 09:00 06/09/17 08:55 Vital Signs Date Time Temp Pulse Resp B/P Pulse Ox O2 Delivery O2 Flow Rate FiO2 06/09/17 13:08 130/80 Automatic Cuff 06/09/17 12:00 98.1 97 18 136/65 95 06/09/17 09:00 95 06/09/17 09:00 Nasal Cannula 2.00 06/09/17 08:30 99 Nasal Cannula 3.00 06/09/17 08:00 100.0 106 18 142/79 96 06/09/17 05:15 99.3 102 20 120/67 97 06/09/17 04:00 Nasal Cannula 2.00 06/09/17 00:24 99.3 106 20 137/65 97 06/09/17 00:00 Nasal Cannula 2.00 06/08/17 21:33 100.4 114 20 127/70 95 06/08/17 20:09 108 06/08/17 20:00 Nasal Cannula 2.00 06/08/17 19:36 98 Nasal Cannula 2.00 06/08/17 06/08/17 06/09/17 15:00 23:00 07:00 Intake Total 1561 ml Balance 1561 ml Intake Oral 960 ml IV Total 601 ml # Voids 2 2 # Bowel Movements 0 Laboratory Tests Test 06/08/17 06/09/17 05:51 06:02 White Blood Count 14.0 TH/MM3 10.5 TH/MM3 Red Blood Count 3.81 MIL/MM3 3.72 MIL/MM3 Hemoglobin 9.6 GM/DL 9.6 GM/DL Hematocrit 30.5 % 29.7 % Mean Corpuscular Volume 80.1 FL 79.8 FL Mean Corpuscular Hemoglobin 25.3 PG 25.7 PG Mean Corpuscular Hemoglobin 31.6 % 32.2 % Concent Red Cell Distribution Width 13.5 % 13.0 % Platelet Count 136 TH/MM3 134 TH/MM3 Mean Platelet Volume 10.9 FL 11.0 FL Neutrophils (%) (Auto) 84.9 % Lymphocytes (%) (Auto) 10.3 % Monocytes (%) (Auto) 4.6 % Eosinophils (%) (Auto) 0.1 % Basophils (%) (Auto) 0.1 % Neutrophils # (Auto) 11.9 TH/MM3 Lymphocytes # (Auto) 1.4 TH/MM3 Monocytes # (Auto) 0.6 TH/MM3 Eosinophils # (Auto) 0.0 TH/MM3 Basophils # (Auto) 0.0 TH/MM3 CBC Comment DIFF FINAL Differential Comment Laboratory Tests Test 06/07/17 06/07/17 06/08/17 06/09/17 17:13 23:40 05:51 06:02 Sodium Level 142 MEQ/L 141 MEQ/L 139 MEQ/L Potassium Level 4.0 MEQ/L 3.2 MEQ/L 3.2 MEQ/L Chloride Level 107 MEQ/L 106 MEQ/L 105 MEQ/L Carbon Dioxide Level 27.2 MEQ/L 27.1 MEQ/L 25.8 MEQ/L Anion Gap 8 MEQ/L 8 MEQ/L 8 MEQ/L Blood Urea Nitrogen 9 MG/DL 8 MG/DL 6 MG/DL Creatinine 0.85 MG/DL 0.72 MG/DL 0.63 MG/DL Estimat Glomerular Filtration 104 ML/MIN 126 ML/MIN 147 ML/MIN Rate Random Glucose 116 MG/DL 96 MG/DL 82 MG/DL Calcium Level 8.6 MG/DL 8.4 MG/DL 8.8 MG/DL Total Bilirubin 0.4 MG/DL 0.7 MG/DL Aspartate Amino Transf 18 U/L 13 U/L (AST/SGOT) Alanine Aminotransferase 24 U/L 19 U/L (ALT/SGPT) Alkaline Phosphatase 76 U/L 69 U/L Total Protein 6.9 GM/DL 6.5 GM/DL Albumin 3.1 GM/DL 2.9 GM/DL Hemoglobin A1c 5.8 % Total Creatine Kinase 302 U/L 285 U/L Creatine Kinase MB 4.0 NG/ML 3.1 NG/ML Creatine Kinase MB % 1.3 % 1.1 % Troponin I 0.11 NG/ML 0.05 NG/ML Direct Bilirubin 0.2 MG/DL Indirect Bilirubin 0.5 MG/DL Microbiology Date/Time Procedure Status Source Growth 06/07/17 06:45 Aerobic Blood Culture - Preliminary Resulted Blood Peripheral NO GROWTH IN 2 DAYS 06/07/17 06:45 Anaerobic Blood Culture - Preliminary Resulted Blood Peripheral NO GROWTH IN 2 DAYS 06/07/17 07:22 Aerobic Blood Culture - Preliminary Resulted Blood Peripheral NO GROWTH IN 2 DAYS 06/07/17 07:22 Anaerobic Blood Culture - Preliminary Resulted Blood Peripheral NO GROWTH IN 2 DAYS 06/07/17 07:39 Aerobic Blood Culture - Preliminary Resulted Blood Peripheral NO GROWTH IN 2 DAYS 06/07/17 07:39 Anaerobic Blood Culture - Preliminary Resulted Blood Peripheral NO GROWTH IN 2 DAYS 06/07/17 14:45 Urine Culture - Final Complete Urine Clean Catch 50-100,000 CFU/ML MIXED KATHRIN... 06/08/17 16:00 Gram Stain - Final Resulted Sputum Expectorated Sputum 06/08/17 16:00 Sputum Culture - Preliminary Resulted S. Aureus Mrsa PHYSICAL EXAMINATION: GENERAL: No acute distress. HEAD, EYES, EARS, NOSE, THROAT: Th head has mild swelling at the left face at the cheek and there is a bruise also at the cheek and there is tenderness on palpation over the left cheek. Pupils reactive to light. No icterus. Oropharynx with moist mucosa without visible lesions. NECK: The neck is supple without adenopathy. LUNGS: Bilateral rhonchi. decreased breath sounds. HEART: Regular S1 and S2. No audible murmurs, rubs or gallops. ABDOMEN: Bowel sounds present, soft, obese, nontender. EXTREMITIES: No clubbing or cyanosis or edema. SKIN: No rash. NEUROLOGIC: Nonfocal. PSYCHIATRIC: calm and cooperative. IMPRESSION: 1. Pneumonia MRSA probably secondary to aspiration in a patient who passed out around the time of using heroin in the form of snorting. 2. Leukocytosis secondary to pneumonia. RECOMMENDATIONS: 1. Stop ceftriaxone. 2. Stop Zithromax. This can be administered p.o. 3. Start IV Vancomycin. 4. Monitor white blood cell count. 4. Monitor blood cultures. 5. Monitor clinical status. Tom Escobar MD Jun 09, 2017 16:25
[2017-06-09] MEDS: VANCOMYCIN INJ 1,000 MG in SODIUM CHLOR 0.9% 250 ML INJ 250 ML IV SCH (16:33)
--- NOTE | 2017-06-09 17:55 | RADRPT ---
EXAM DATE/TIME: 06/09/2017 17:28 [facility] COMPARISON: CHEST SINGLE AP, December 09, 2016, 3:25. INDICATIONS : Shortness of breath. MEDICAL HISTORY : Asthma Bipolar disorder Recreational drug abuse. SURGICAL HISTORY : None. ENCOUNTER: Initial ACUITY: 3 days PAIN SCORE: 0/10 LOCATION: Bilateral chest FINDINGS: A single AP semierect view of the chest was obtained and now demonstrates bilateral alveolar opacitie s greatest in the perihilar regions. There is no pleural fluid. Heart size is at the upper limits of normal. The bony structures remain intact. There are multiple overlying electrocardiogram leads. CONCLUSION: New bilateral alveolar opacities. Differential diagnosis includes pulmonary edema which may be noncar diogenic. Diffuse pneumonia could have this appearance. Toney Luciano MD on June 09, 2017 at 17:53 Board Certified Radiologist. This report was verified electronically.
[2017-06-09] MEDS: POTASSIUM CHLORIDE 20 MEQ CONTROLLED RELEASE TAB PO SCH (18:09)
[2017-06-09] MEDS: clonazePAM 0.5 MG TAB PO SCH (21:30)
[2017-06-10] VITALS (10 sets, daily range): BP systolic 103–155; BP diastolic 75–99; PULSE 76–91; RESP 18–20; TEMP 97.2–98.9; O2SAT 95–99
[2017-06-10] MEDS: HEPARIN SODIUM - SQ 10,000 UNITS/ML VIAL SQ SCH ×2 (01:29→14:35)
[2017-06-10] MEDS: VANCOMYCIN INJ 1,000 MG in SODIUM CHLOR 0.9% 250 ML INJ 250 ML IV SCH ×2 (05:22→16:44)
[2017-06-10] MEDS: INSULIN ASPART SUPPLEMENTAL SCALE SQ SCH ×4 (06:01→21:00)
[2017-06-10] MEDS: RESP: ALBUTEROL 2.5 MG/IPRATROPIUM 0.5 MG NEB (SCH) NEB ×4 (07:58→19:51)
[2017-06-10] MEDS: POTASSIUM CHLORIDE 20 MEQ CONTROLLED RELEASE TAB PO SCH (08:38)
[2017-06-10] MEDS: SODIUM CHLORIDE 0.9% FLUSH 10 ML FLUSH IV FLUSH SCH ×2 (08:40→21:33)
[2017-06-10] MEDS: ASPIRIN 81 MG CHEW TAB CHEW SCH (08:41)
[2017-06-10] MEDS: buPROPion HCL 75 MG TAB PO SCH (08:41)
[2017-06-10] MEDS: FLUoxetine HCL 20 MG CAP PO SCH (08:41)
[2017-06-10] MEDS: ONDANSETRON HCL 4 MG/2 ML VIAL IV PUSH PRN (08:41)
[2017-06-10] MEDS: POTASSIUM CHLORIDE 10 MEQ CONTROLLED RELEASE TAB PO SCH ×2 (08:41→21:31)
[2017-06-10] MEDS: DOCUSATE SODIUM 50 MG/SENNA 8.6 MG TAB PO SCH ×2 (08:41→21:31)
[2017-06-10] MEDS: CHLORHEXIDINE GLUCONATE 0.12% 15 ML CUP SWISH-SPIT SCH ×3 (08:42→18:21)
[2017-06-10 08:50] LABS: BICARBONATE 29.4 MEQ/L (21.0-32.0); POTASSIUM 3.9 MEQ/L (3.5-5.1)
--- NOTE | 2017-06-10 09:51 | HHI.PR ---
Subjective History of Present Illness Patient feel weak and tired d/w RN Luanen no acute issue. Leukocytosis resolved. Review of Systems Constitutional Constitutional: Fatigue, Weakness Pulmonary Respiratory: Coughing Vitals/Results Intake & Output 06/09/17 06/09/17 06/10/17 15:00 23:00 07:00 Intake Total 960 ml 550 ml Balance 960 ml 550 ml Intake Oral 960 ml 300 ml IV Total 250 ml # Voids 4 2 # Bowel Movements 0 Vital Signs Vital Signs Date Time Temp Pulse Resp B/P Pulse Ox O2 Delivery O2 Flow Rate FiO2 06/10/17 08:04 98 Nasal Cannula 2.00 06/10/17 08:01 98.5 85 19 155/89 95 06/10/17 05:21 98.9 81 20 153/99 96 06/10/17 04:00 Nasal Cannula 3.00 06/10/17 00:45 98.2 89 20 142/92 97 06/10/17 00:00 Nasal Cannula 3.00 06/09/17 20:59 97.9 93 18 138/87 94 06/09/17 20:43 98 Nasal Cannula 2.00 06/09/17 20:00 Nasal Cannula 3.00 06/09/17 20:00 85 06/09/17 16:00 98.5 76 18 129/90 99 06/09/17 13:08 130/80 Automatic Cuff 06/09/17 12:00 98.1 97 18 136/65 95 CBC/BMP: 06/09/17 0602 06/10/17 0713 Lab Results Laboratory Tests Test 06/10/17 07:13 Sodium Level 142 MEQ/L Potassium Level 3.9 MEQ/L Chloride Level 106 MEQ/L Carbon Dioxide Level 29.4 MEQ/L Anion Gap 7 MEQ/L Blood Urea Nitrogen 4 MG/DL Creatinine 0.66 MG/DL Estimat Glomerular Filtration 140 ML/MIN Rate Random Glucose 55 MG/DL Calcium Level 8.7 MG/DL Physical Exam General General Appearance: No Acute Distress, Comfortable Eyes Eye Exam: Pupils Equal, Pupils Reactive, Sclera White, Extraocular Movement Intact Throat Throat Exam: Oral Mucosa [place] & Moist, Oral Pharynx Normal Pulmonary Resp Exam: Clear Bilaterally, Breath Sounds Equal, No Distress Cardiology CV Exam: Regular, Normal Sinus Rhythm Gastrointestinal/Abdomen GI Exam: Soft, Non-Tender, Bowel Sounds Present Musculoskeletal MS Exam: Normal Tone Integumentary Skin Exam: Warm, Dry, Intact Extremeties Extremities Exam: No Edema Neurologic Neuro Exam: Awake, Oriented, Speech Clear, Moving All Extremities, No Focal Deficits VTE Prophylaxis VTE Prophylaxis Meds: Heparin PUD Prophylasis PUD Prophylaxis: Protonix Assessment/Plan Assessment/Plan ASSESSMENT/PLAN 1. This is a 21-year-old female who came to the ER diagnosed with loss of consciousness after heroin abuse. The patient got Narcan and after that the patient improved. 2. Hyperglycemia. checked hemoglobin A1C 5.8 and will monitor blood sugar. 3. Acute renal Insufficency..resolved. 4. Elevated troponin. checked serial cardiac enzymes. cardiology input noted. checked UA shows UTI. and CT chest without contrast show pneumonia... sputum positive for MRSA on Vancomycin 6. DVT prophylaxis heparin 5000 units subcutaneous twice a day. 7. GI prophylaxis Protonix 40 milligrams p.o. daily. 8. Hypokalemia resolved. We are going to manage the patient on a daily basis and make recommendation on a daily basis. Discussed Condition with: Patient Sean Bnod MD Jun 10, 2017 09:51
--- NOTE | 2017-06-10 17:46 | PD.CARD.PN ---
Subjective Subjective Remarks No events overnight Overall feels better, heart rates better, breathing better Objective Medications Current Medications Medications (Trade) Dose Ordered Sig/Francia Route Start Time Stop Time Status Last Admin (NS Flush) 2 ml UNSCH PRN IV FLUSH 06/07/17 10:30 06/10/17 16:44 (NS Flush) 2 ml BID IV FLUSH 06/07/17 21:00 06/10/17 08:40 (Heparin Inj) 5,000 units Q12H SQ 06/07/17 13:00 06/10/17 14:35 (Narcan Inj) 0.4 mg UNSCH PRN IV 06/07/17 10:30 (Danya-Colace) 1 tab BID PO 06/07/17 21:00 06/10/17 08:41 (Milk Of Magnesia Liq) 30 ml Q12H PRN PO 06/07/17 10:30 (Senokot) 17.2 mg Q12H PRN PO 06/07/17 10:30 (Dulcolax Supp) 10 mg DAILY PRN RECTAL 06/07/17 10:30 (Lactulose Liq) 30 ml DAILY PRN PO 06/07/17 10:30 (D50w (Vial) Inj) 50 ml UNSCH PRN IV 06/07/17 10:30 (Glucagon Inj) 1 mg UNSCH PRN OTHER 06/07/17 10:30 (Wellbutrin) 75 mg DAILY PO 06/07/17 17:00 06/10/17 08:41 (KlonoPIN) 0.5 mg HS PO 06/07/17 21:00 06/09/17 21:30 (PROzac) 20 mg DAILY PO 06/07/17 17:00 06/10/17 08:41 (Aspirin Chew) 81 mg DAILY CHEW 06/08/17 09:00 06/10/17 08:41 (KCl) 30 meq Q12HR PO 06/08/17 21:00 06/10/17 08:41 Ondansetron HCl 4 mg 4 mg Q8HR PRN IV PUSH 06/09/17 09:00 06/10/17 08:41 (Vancomycin Inj/ NS 250 ml Inj) 250 ml @ 250 mls/hr Q12H IV 06/09/17 17:00 06/10/17 16:44 (KCl) 40 meq DAILY PO 06/09/17 17:45 06/09/17 18:09 (Peridex 0.12% Liq) 15 ml TID SWISH-SPIT 06/10/17 09:00 06/10/17 14:35 Vital Signs / I&O Vital Signs Date Time Temp Pulse Resp B/P Pulse Ox O2 Delivery O2 Flow Rate FiO2 06/10/17 16:00 Nasal Cannula 2.00 06/10/17 12:01 98.5 78 19 103/80 96 06/10/17 12:00 Nasal Cannula 2.00 06/10/17 08:30 Nasal Cannula 2.00 06/10/17 08:04 98 Nasal Cannula 2.00 06/10/17 08:01 98.5 85 19 155/89 95 06/10/17 08:00 76 06/10/17 05:21 98.9 81 20 153/99 96 06/10/17 04:00 Nasal Cannula 3.00 06/10/17 00:45 98.2 89 20 142/92 97 06/10/17 00:00 Nasal Cannula 3.00 06/09/17 20:59 97.9 93 18 138/87 94 06/09/17 20:43 98 Nasal Cannula 2.00 06/09/17 20:00 Nasal Cannula 3.00 06/09/17 20:00 85 I/O 06/09/17 06/09/17 06/09/17 06/10/17 06/10/17 06/10/17 07:00 15:00 23:00 07:00 15:00 23:00 Intake Total 960 ml 550 ml 6 ml Balance 960 ml 550 ml 6 ml Intake Oral 960 ml 300 ml IV Total 250 ml 6 ml # Voids 4 2 # Bowel Movements 0 Physical Exam GENERAL: NAD, AAOx3 SKIN: Warm and dry. HEAD: Atraumatic. Normocephalic. EYES: Pupils equal and round. No scleral icterus. No injection or drainage. ENT: No nasal bleeding or discharge. Mucous membranes pink and moist. NECK: Trachea midline. No JVD. CARDIOVASCULAR: Regular rhythm, tachycardic, no murmurs noted RESPIRATORY: No accessory muscle use. Decreased breath sounds bilaterally GASTROINTESTINAL: Abdomen soft, non-tender, nondistended. Hepatic and splenic margins not palpable. MUSCULOSKELETAL: Extremities without clubbing, cyanosis, or edema. No obvious deformities. NEUROLOGICAL: Awake and alert. No obvious cranial nerve deficits. Motor grossly within normal limits. Five out of 5 muscle strength in the arms and legs. Normal speech. PSYCHIATRIC: Appropriate mood and affect; insight and judgment normal. Laboratory Laboratory Tests Test 06/10/17 07:13 Sodium Level 142 MEQ/L Potassium Level 3.9 MEQ/L Chloride Level 106 MEQ/L Carbon Dioxide Level 29.4 MEQ/L Anion Gap 7 MEQ/L Blood Urea Nitrogen 4 MG/DL Creatinine 0.66 MG/DL Estimat Glomerular Filtration 140 ML/MIN Rate Random Glucose 55 MG/DL Calcium Level 8.7 MG/DL Assessment and Plan Problem List: (1) Opiate or related narcotic overdose (2) Elevated troponin (3) Paroxysmal atrial fibrillation (4) Acute kidney injury (5) Hyperglycemia (6) Urinary tract infection (7) Chest wall pain Assessment and Plan 1) Heroin overdose, possibly laced with fentanyl with pulse ox extremely low per EMS 2) Minimally elevated troponin, secondary to hypoxia/heroin overdose Although 21, should rule out underlying CAD... plan CTA coronary, would attempt to avoid nuclear stress test in a 21 year old 3) PAF, CHADSVASc = 1, secondary to heroin overdose Will plan to place on ASA 81mg daily 4) With brown sputum as well as chest pain/SOB, possible aspiration PNA vs pneumonitis? ID following... currently breathing better, better oxygenation Vish Coleman DO Jun 10, 2017 17:46
[2017-06-10] MEDS: clonazePAM 0.5 MG TAB PO SCH (21:31)
[2017-06-11] VITALS (10 sets, daily range): BP systolic 132–158; BP diastolic 76–94; PULSE 66–89; RESP 18–20; TEMP 97.9–98.9; O2SAT 96–99
[2017-06-11] MEDS: HEPARIN SODIUM - SQ 10,000 UNITS/ML VIAL SQ SCH ×2 (01:06→13:47)
[2017-06-11] MEDS: VANCOMYCIN INJ 1,000 MG in SODIUM CHLOR 0.9% 250 ML INJ 250 ML IV SCH ×2 (04:26→17:29)
[2017-06-11 05:26] LABS: AUTOMATED NEUTROPHIL # 6.6 TH/MM3 (1.8-7.7); BASOPHIL % 0.3 % (0.0-2.0); EOSINOPHIL # 0.3 TH/MM3 (0-0.4); EOSINOPHIL % 2.6 % (0.0-4.0); HEMATOCRIT 32.7 % (35.0-46.0); HEMO FLAGS DIFF FINAL; LYMPH % 25.1 % (9.0-44.0); LYMPHOCYTE # 2.6 TH/MM3 (1.0-4.8); MEAN CELL VOLUME 79.5 FL (80.0-100.0); MEAN CORPUSCULAR HGB CONC 32.7 % (32.0-36.0); MONO % 7.5 % (0.0-8.0); NEUT % 64.5 % (16.0-70.0); PLATELET COUNT 182 TH/MM3 (150-450); RED CELL DISTRIBUTION WIDTH 13.5 % (11.6-17.2); WHITE BLOOD COUNT 10.2 TH/MM3 (4.0-11.0)
[2017-06-11 05:42] LABS: ALT (GPT) 20 U/L (9-42); ANION GAP 7 MEQ/L (5-15); AST (GOT) 10 U/L (16-38); BICARBONATE 29.7 MEQ/L (21.0-32.0); BLOOD UREA NITROGEN 3 MG/DL (7-18); CHLORIDE 104 MEQ/L (98-107); GLOMERULAR FILTRATION RATE 145 ML/MIN (>89); POTASSIUM 3.4 MEQ/L (3.5-5.1); SODIUM (NA) 141 MEQ/L (136-145)
[2017-06-11 05:44] LABS: ALKALINE PHOSPHATASE 76 U/L (45-117); TOTAL BILIRUBIN ADULT 0.4 MG/DL (0.2-1.0); VANCOMYCIN TROUGH 3.6 MCG/ML (5.0-10.0)
[2017-06-11] MEDS: ONDANSETRON HCL 4 MG/2 ML VIAL IV PUSH PRN (06:15)
[2017-06-11] MEDS: INSULIN ASPART SUPPLEMENTAL SCALE SQ SCH ×3 (06:18→16:00)
[2017-06-11] MEDS: RESP: ALBUTEROL 2.5 MG/IPRATROPIUM 0.5 MG NEB (SCH) NEB ×4 (07:30→19:04)
--- NOTE | 2017-06-11 08:27 | HHI.PR ---
Subjective History of Present Illness Patient feel weak and tired d/w RN Luanne c/o back pain worse with movement... Leukocytosis resolved. low potassium will replace. Review of Systems Constitutional Constitutional: Fatigue, Weakness Pulmonary Respiratory: Coughing Musculoskeletal MS Remarks lower back pain. Vitals/Results Intake & Output 06/10/17 06/10/17 06/11/17 15:00 23:00 07:00 Intake Total 386 ml 251 ml Balance 386 ml 251 ml Intake Oral 380 ml IV Total 6 ml 251 ml # Voids 6 5 # Bowel Movements 1 Vital Signs Vital Signs Date Time Temp Pulse Resp B/P Pulse Ox O2 Delivery O2 Flow Rate FiO2 06/11/17 07:32 99 Nasal Cannula 2.00 06/11/17 04:00 Nasal Cannula 2.00 06/11/17 04:00 98.3 66 18 135/76 99 06/11/17 00:00 98.7 89 18 132/78 98 06/11/17 00:00 Nasal Cannula 2.00 06/10/17 20:16 76 06/10/17 20:00 97.2 91 18 138/75 95 06/10/17 20:00 Nasal Cannula 2.00 06/10/17 19:53 99 Nasal Cannula 2.00 06/10/17 16:01 98.4 80 18 138/93 97 06/10/17 16:00 Nasal Cannula 2.00 06/10/17 12:01 98.5 78 19 103/80 96 06/10/17 12:00 Nasal Cannula 2.00 06/10/17 08:30 Nasal Cannula 2.00 CBC/BMP: 06/11/17 0400 06/11/17 0400 Lab Results Laboratory Tests Test 06/11/17 04:00 White Blood Count 10.2 TH/MM3 Red Blood Count 4.10 MIL/MM3 Hemoglobin 10.7 GM/DL Hematocrit 32.7 % Mean Corpuscular Volume 79.5 FL Mean Corpuscular Hemoglobin 26.0 PG Mean Corpuscular Hemoglobin 32.7 % Concent Red Cell Distribution Width 13.5 % Platelet Count 182 TH/MM3 Mean Platelet Volume 10.8 FL Neutrophils (%) (Auto) 64.5 % Lymphocytes (%) (Auto) 25.1 % Monocytes (%) (Auto) 7.5 % Eosinophils (%) (Auto) 2.6 % Basophils (%) (Auto) 0.3 % Neutrophils # (Auto) 6.6 TH/MM3 Lymphocytes # (Auto) 2.6 TH/MM3 Monocytes # (Auto) 0.8 TH/MM3 Eosinophils # (Auto) 0.3 TH/MM3 Basophils # (Auto) 0.0 TH/MM3 CBC Comment DIFF FINAL Differential Comment Sodium Level 141 MEQ/L Potassium Level 3.4 MEQ/L Chloride Level 104 MEQ/L Carbon Dioxide Level 29.7 MEQ/L Anion Gap 7 MEQ/L Blood Urea Nitrogen 3 MG/DL Creatinine 0.64 MG/DL Estimat Glomerular Filtration 145 ML/MIN Rate Random Glucose 91 MG/DL Calcium Level 9.1 MG/DL Total Bilirubin 0.4 MG/DL Aspartate Amino Transf 10 U/L (AST/SGOT) Alanine Aminotransferase 20 U/L (ALT/SGPT) Alkaline Phosphatase 76 U/L Total Protein 7.9 GM/DL Albumin 3.1 GM/DL Vancomycin Level Trough 3.6 MCG/ML Physical Exam General General Appearance: No Acute Distress, Comfortable Appearance Remarks obese Eyes Eye Exam: Pupils Equal, Pupils Reactive, Sclera White, Extraocular Movement Intact Throat Throat Exam: Oral Mucosa Glide & Moist, Oral Pharynx Normal Pulmonary Resp Exam: Clear Bilaterally, Breath Sounds Equal, No Distress Cardiology CV Exam: Regular, Normal Sinus Rhythm Gastrointestinal/Abdomen GI Exam: Soft, Non-Tender, Bowel Sounds Present Musculoskeletal MS Exam: Normal Tone Integumentary Skin Exam: Warm, Dry, Intact Extremeties Extremities Exam: No Edema Neurologic Neuro Exam: Awake, Oriented, Speech Clear, Moving All Extremities, No Focal Deficits VTE Prophylaxis VTE Prophylaxis Meds: Heparin PUD Prophylasis PUD Prophylaxis: Protonix Assessment/Plan Assessment/Plan ASSESSMENT/PLAN 1. This is a 21-year-old female who came to the ER diagnosed with loss of consciousness after heroin abuse. The patient got Narcan and after that the patient improved. 2. Hyperglycemia. checked hemoglobin A1C 5.8 and will monitor blood sugar. 3. Acute renal Insufficency..resolved. 4. Elevated troponin. checked serial cardiac enzymes. cardiology input noted. checked UA shows UTI. and CT chest without contrast show pneumonia... sputum positive for MRSA on Vancomycin 6. DVT prophylaxis heparin 5000 units subcutaneous twice a day. 7. GI prophylaxis Protonix 40 milligrams p.o. daily. 8. Hypokalemia will replace and monitor. We are going to manage the patient on a daily basis and make recommendation on a daily basis. Check CBC with diff CMP in AM. Discussed Condition with: Patient Sean Bond MD Jun 11, 2017 08:27
[2017-06-11] MEDS: FLUoxetine HCL 20 MG CAP PO SCH (08:56)
[2017-06-11] MEDS: SODIUM CHLORIDE 0.9% FLUSH 10 ML FLUSH IV FLUSH SCH ×2 (08:56→22:18)
[2017-06-11] MEDS: buPROPion HCL 75 MG TAB PO SCH (08:56)
[2017-06-11] MEDS: ASPIRIN 81 MG CHEW TAB CHEW SCH (08:56)
[2017-06-11] MEDS: POTASSIUM CHLORIDE 20 MEQ CONTROLLED RELEASE TAB PO SCH (08:56)
[2017-06-11] MEDS: CHLORHEXIDINE GLUCONATE 0.12% 15 ML CUP SWISH-SPIT SCH ×3 (08:56→17:29)
[2017-06-11] MEDS: DOCUSATE SODIUM 50 MG/SENNA 8.6 MG TAB PO SCH ×2 (08:56→22:18)
[2017-06-11] MEDS: POTASSIUM CHLORIDE 10 MEQ CONTROLLED RELEASE TAB PO SCH ×2 (08:56→22:18)
--- NOTE | 2017-06-11 12:19 | PD.CARD.PN ---
Subjective Subjective Remarks No events overnight Some chest pain with deep breaths Objective Medications Current Medications Medications (Trade) Dose Ordered Sig/Francia Route Start Time Stop Time Status Last Admin (NS Flush) 2 ml UNSCH PRN IV FLUSH 06/07/17 10:30 06/10/17 16:44 (NS Flush) 2 ml BID IV FLUSH 06/07/17 21:00 06/11/17 08:56 (Heparin Inj) 5,000 units Q12H SQ 06/07/17 13:00 06/11/17 01:06 (Narcan Inj) 0.4 mg UNSCH PRN IV 06/07/17 10:30 (Danya-Colace) 1 tab BID PO 06/07/17 21:00 06/11/17 08:56 (Milk Of Magnesia Liq) 30 ml Q12H PRN PO 06/07/17 10:30 (Senokot) 17.2 mg Q12H PRN PO 06/07/17 10:30 (Dulcolax Supp) 10 mg DAILY PRN RECTAL 06/07/17 10:30 (Lactulose Liq) 30 ml DAILY PRN PO 06/07/17 10:30 (D50w (Vial) Inj) 50 ml UNSCH PRN IV 06/07/17 10:30 (Glucagon Inj) 1 mg UNSCH PRN OTHER 06/07/17 10:30 (Wellbutrin) 75 mg DAILY PO 06/07/17 17:00 06/11/17 08:56 (KlonoPIN) 0.5 mg HS PO 06/07/17 21:00 06/10/17 21:31 (PROzac) 20 mg DAILY PO 06/07/17 17:00 06/11/17 08:56 (Aspirin Chew) 81 mg DAILY CHEW 06/08/17 09:00 06/11/17 08:56 (KCl) 30 meq Q12HR PO 06/08/17 21:00 06/11/17 08:56 Ondansetron HCl 4 mg 4 mg Q8HR PRN IV PUSH 06/09/17 09:00 06/11/17 06:15 (Vancomycin Inj/ NS 250 ml Inj) 250 ml @ 250 mls/hr Q12H IV 06/09/17 17:00 06/11/17 04:26 (KCl) 40 meq DAILY PO 06/09/17 17:45 06/11/17 08:56 (Peridex 0.12% Liq) 15 ml TID SWISH-SPIT 06/10/17 09:00 06/11/17 08:56 Vital Signs / I&O Vital Signs Date Time Temp Pulse Resp B/P Pulse Ox O2 Delivery O2 Flow Rate FiO2 06/11/17 12:00 98.6 75 20 145/93 96 06/11/17 08:45 Nasal Cannula 2.00 06/11/17 08:00 97.9 81 20 150/85 97 06/11/17 07:47 72 06/11/17 07:32 99 Nasal Cannula 2.00 06/11/17 04:00 Nasal Cannula 2.00 06/11/17 04:00 98.3 66 18 135/76 99 06/11/17 00:00 98.7 89 18 132/78 98 06/11/17 00:00 Nasal Cannula 2.00 06/10/17 20:16 76 06/10/17 20:00 97.2 91 18 138/75 95 06/10/17 20:00 Nasal Cannula 2.00 06/10/17 19:53 99 Nasal Cannula 2.00 06/10/17 16:01 98.4 80 18 138/93 97 06/10/17 16:00 Nasal Cannula 2.00 I/O 06/10/17 06/10/17 06/10/17 06/11/17 06/11/17 06/11/17 07:00 15:00 23:00 07:00 15:00 23:00 Intake Total 550 ml 386 ml 251 ml Balance 550 ml 386 ml 251 ml Intake Oral 300 ml 380 ml IV Total 250 ml 6 ml 251 ml # Voids 2 6 5 # Bowel Movements 1 Physical Exam GENERAL: NAD, AAOx3 SKIN: Warm and dry. HEAD: Atraumatic. Normocephalic. EYES: Pupils equal and round. No scleral icterus. No injection or drainage. ENT: No nasal bleeding or discharge. Mucous membranes pink and moist. NECK: Trachea midline. No JVD. CARDIOVASCULAR: Regular rhythm, tachycardic, no murmurs noted RESPIRATORY: No accessory muscle use. Decreased breath sounds bilaterally GASTROINTESTINAL: Abdomen soft, non-tender, nondistended. Hepatic and splenic margins not palpable. MUSCULOSKELETAL: Extremities without clubbing, cyanosis, or edema. No obvious deformities. NEUROLOGICAL: Awake and alert. No obvious cranial nerve deficits. Motor grossly within normal limits. Five out of 5 muscle strength in the arms and legs. Normal speech. PSYCHIATRIC: Appropriate mood and affect; insight and judgment normal. Laboratory Laboratory Tests Test 06/11/17 04:00 White Blood Count 10.2 TH/MM3 Red Blood Count 4.10 MIL/MM3 Hemoglobin 10.7 GM/DL Hematocrit 32.7 % Mean Corpuscular Volume 79.5 FL Mean Corpuscular Hemoglobin 26.0 PG Mean Corpuscular Hemoglobin 32.7 % Concent Red Cell Distribution Width 13.5 % Platelet Count 182 TH/MM3 Mean Platelet Volume 10.8 FL Neutrophils (%) (Auto) 64.5 % Lymphocytes (%) (Auto) 25.1 % Monocytes (%) (Auto) 7.5 % Eosinophils (%) (Auto) 2.6 % Basophils (%) (Auto) 0.3 % Neutrophils # (Auto) 6.6 TH/MM3 Lymphocytes # (Auto) 2.6 TH/MM3 Monocytes # (Auto) 0.8 TH/MM3 Eosinophils # (Auto) 0.3 TH/MM3 Basophils # (Auto) 0.0 TH/MM3 CBC Comment DIFF FINAL Differential Comment Sodium Level 141 MEQ/L Potassium Level 3.4 MEQ/L Chloride Level 104 MEQ/L Carbon Dioxide Level 29.7 MEQ/L Anion Gap 7 MEQ/L Blood Urea Nitrogen 3 MG/DL Creatinine 0.64 MG/DL Estimat Glomerular Filtration 145 ML/MIN Rate Random Glucose 91 MG/DL Calcium Level 9.1 MG/DL Total Bilirubin 0.4 MG/DL Aspartate Amino Transf 10 U/L (AST/SGOT) Alanine Aminotransferase 20 U/L (ALT/SGPT) Alkaline Phosphatase 76 U/L Total Protein 7.9 GM/DL Albumin 3.1 GM/DL Vancomycin Level Trough 3.6 MCG/ML Assessment and Plan Problem List: (1) Opiate or related narcotic overdose (2) Elevated troponin (3) Paroxysmal atrial fibrillation (4) Acute kidney injury (5) Hyperglycemia (6) Urinary tract infection (7) Chest wall pain Assessment and Plan 1) Heroin overdose, possibly laced with fentanyl with pulse ox extremely low per EMS 2) Minimally elevated troponin, secondary to hypoxia/heroin overdose Although 21, should rule out underlying CAD... plan CTA coronary, would attempt to avoid nuclear stress test in a 21 year old.. heart rates now better, will attempt 3) PAF, CHADSVASc = 1, secondary to heroin overdose Will plan to place on ASA 81mg daily 4) With brown sputum as well as chest pain/SOB, possible aspiration PNA vs pneumonitis? ID following... currently breathing better, better oxygenation Vish Coleman DO Jun 11, 2017 12:18
--- NOTE | 2017-06-11 14:49 | HHI.IDPN ---
Note Infectious Disease Note Patient continues to have pain in the chest and upper back when she coughs or takes a deep breath. Has cough but not producing sputum. Afebrile. No chills. PAST MEDICAL HISTORY: 1. Asthma in childhood. 2. Bipolar disorder. 3. Anxiety and depression. ALLERGIES: NO KNOWN DRUG ALLERGIES. ANTIBIOTICS: Vancomycin. OBJECTIVE: Vital Signs Date Time Temp Pulse Resp B/P Pulse Ox O2 Delivery O2 Flow Rate FiO2 06/11/17 12:00 98.6 75 20 145/93 96 06/11/17 08:45 Nasal Cannula 2.00 06/11/17 08:00 97.9 81 20 150/85 97 06/11/17 07:47 72 06/11/17 07:32 99 Nasal Cannula 2.00 06/11/17 04:00 Nasal Cannula 2.00 06/11/17 04:00 98.3 66 18 135/76 99 06/11/17 00:00 98.7 89 18 132/78 98 06/11/17 00:00 Nasal Cannula 2.00 06/10/17 20:16 76 06/10/17 20:00 97.2 91 18 138/75 95 06/10/17 20:00 Nasal Cannula 2.00 06/10/17 19:53 99 Nasal Cannula 2.00 06/10/17 16:01 98.4 80 18 138/93 97 06/10/17 16:00 Nasal Cannula 2.00 06/10/17 06/10/17 06/11/17 15:00 23:00 07:00 Intake Total 386 ml 251 ml Balance 386 ml 251 ml Intake Oral 380 ml IV Total 6 ml 251 ml # Voids 6 5 # Bowel Movements 1 Laboratory Tests Test 06/11/17 04:00 White Blood Count 10.2 TH/MM3 Red Blood Count 4.10 MIL/MM3 Hemoglobin 10.7 GM/DL Hematocrit 32.7 % Mean Corpuscular Volume 79.5 FL Mean Corpuscular Hemoglobin 26.0 PG Mean Corpuscular Hemoglobin 32.7 % Concent Red Cell Distribution Width 13.5 % Platelet Count 182 TH/MM3 Mean Platelet Volume 10.8 FL Neutrophils (%) (Auto) 64.5 % Lymphocytes (%) (Auto) 25.1 % Monocytes (%) (Auto) 7.5 % Eosinophils (%) (Auto) 2.6 % Basophils (%) (Auto) 0.3 % Neutrophils # (Auto) 6.6 TH/MM3 Lymphocytes # (Auto) 2.6 TH/MM3 Monocytes # (Auto) 0.8 TH/MM3 Eosinophils # (Auto) 0.3 TH/MM3 Basophils # (Auto) 0.0 TH/MM3 CBC Comment DIFF FINAL Differential Comment Laboratory Tests Test 06/10/17 06/11/17 07:13 04:00 Sodium Level 142 MEQ/L 141 MEQ/L Potassium Level 3.9 MEQ/L 3.4 MEQ/L Chloride Level 106 MEQ/L 104 MEQ/L Carbon Dioxide Level 29.4 MEQ/L 29.7 MEQ/L Anion Gap 7 MEQ/L 7 MEQ/L Blood Urea Nitrogen 4 MG/DL 3 MG/DL Creatinine 0.66 MG/DL 0.64 MG/DL Estimat Glomerular Filtration 140 ML/MIN 145 ML/MIN Rate Random Glucose 55 MG/DL 91 MG/DL Calcium Level 8.7 MG/DL 9.1 MG/DL Total Bilirubin 0.4 MG/DL Aspartate Amino Transf 10 U/L (AST/SGOT) Alanine Aminotransferase 20 U/L (ALT/SGPT) Alkaline Phosphatase 76 U/L Total Protein 7.9 GM/DL Albumin 3.1 GM/DL Microbiology Date/Time Procedure Status Source Growth 06/08/17 16:00 Gram Stain - Final Complete Sputum Expectorated Sputum 06/08/17 16:00 Sputum Culture - Final Complete S. Aureus Mrsa Beta Strep Not Group A PHYSICAL EXAMINATION: GENERAL: No acute distress. HEENT: Pupils reactive to light. No icterus. Oropharynx: moist mucosa without visible lesions. NECK: The neck is supple without adenopathy. LUNGS: Bilateral rhonchi. decreased breath sounds. HEART: Regular S1 and S2. No audible murmurs, rubs or gallops. ABDOMEN: Bowel sounds present, soft, obese, nontender. EXTREMITIES: No clubbing or cyanosis or edema. SKIN: No rash. NEUROLOGIC: Nonfocal. PSYCHIATRIC: calm and cooperative. IMPRESSION: 1. Pneumonia MRSA/ group A strep secondary to aspiration in a patient who passed out around the time of using heroin in the form of snorting. 2. Leukocytosis secondary to pneumonia. Improved. 3. Chest pain - KAUR in progress. RECOMMENDATIONS: 1. Continue Vancomycin. 2. Monitor white blood cell count. 3. Monitor CTA. 4. Monitor clinical status. Dontfraid,Tom F MD Jun 11, 2017 14:48
[2017-06-11] MEDS: clonazePAM 0.5 MG TAB PO SCH (22:18)
[2017-06-12] VITALS (9 sets, daily range): BP systolic 137–157; BP diastolic 76–98; PULSE 63–88; RESP 16–18; TEMP 97.8–98.7; O2SAT 95–100
[2017-06-12] MEDS: HEPARIN SODIUM - SQ 10,000 UNITS/ML VIAL SQ SCH ×2 (01:49→12:08)
[2017-06-12] MEDS: VANCOMYCIN INJ 1,000 MG in SODIUM CHLOR 0.9% 250 ML INJ 250 ML IV SCH ×2 (05:58→17:16)
[2017-06-12 08:35] LABS: AUTOMATED NEUTROPHIL # 5.6 TH/MM3 (1.8-7.7); BASOPHIL % 0.1 % (0.0-2.0); EOSINOPHIL # 0.2 TH/MM3 (0-0.4); EOSINOPHIL % 2.2 % (0.0-4.0); HEMATOCRIT 33.4 % (35.0-46.0); HEMO FLAGS DIFF FINAL; LYMPH % 34.2 % (9.0-44.0); LYMPHOCYTE # 3.6 TH/MM3 (1.0-4.8); MEAN CELL VOLUME 80.1 FL (80.0-100.0); MEAN CORPUSCULAR HEMOGLOBIN 25.3 PG (27.0-34.0); MEAN CORPUSCULAR HGB CONC 31.6 % (32.0-36.0); MONO % 10.2 % (0.0-8.0); NEUT % 53.3 % (16.0-70.0); PLATELET COUNT 217 TH/MM3 (150-450); RED BLOOD COUNT 4.17 MIL/MM3 (4.00-5.30); RED CELL DISTRIBUTION WIDTH 13.3 % (11.6-17.2); WHITE BLOOD COUNT 10.5 TH/MM3 (4.0-11.0)
[2017-06-12] MEDS: RESP: ALBUTEROL 2.5 MG/IPRATROPIUM 0.5 MG NEB (SCH) NEB (08:36)
[2017-06-12 08:52] LABS: ANION GAP 11 MEQ/L (5-15); AST (GOT) 13 U/L (16-38); BICARBONATE 25.5 MEQ/L (21.0-32.0); BLOOD UREA NITROGEN 3 MG/DL (7-18); CHLORIDE 104 MEQ/L (98-107); GLOMERULAR FILTRATION RATE 145 ML/MIN (>89); POTASSIUM 3.5 MEQ/L (3.5-5.1); SODIUM (NA) 140 MEQ/L (136-145)
[2017-06-12 08:53] LABS: ALT (GPT) 21 U/L (9-42)
[2017-06-12 08:55] LABS: ALKALINE PHOSPHATASE 79 U/L (45-117); TOTAL BILIRUBIN ADULT 0.4 MG/DL (0.2-1.0)
[2017-06-12] MEDS: DOCUSATE SODIUM 50 MG/SENNA 8.6 MG TAB PO SCH ×2 (09:00→21:00)
[2017-06-12] MEDS: buPROPion HCL 75 MG TAB PO SCH (09:34)
[2017-06-12] MEDS: POTASSIUM CHLORIDE 20 MEQ CONTROLLED RELEASE TAB PO SCH (09:34)
[2017-06-12] MEDS: FLUoxetine HCL 20 MG CAP PO SCH (09:34)
[2017-06-12] MEDS: SODIUM CHLORIDE 0.9% FLUSH 10 ML FLUSH IV FLUSH SCH ×2 (09:34→21:41)
[2017-06-12] MEDS: POTASSIUM CHLORIDE 10 MEQ CONTROLLED RELEASE TAB PO SCH ×2 (09:34→21:40)
[2017-06-12] MEDS: ASPIRIN 81 MG CHEW TAB CHEW SCH (09:34)
[2017-06-12] MEDS: CHLORHEXIDINE GLUCONATE 0.12% 15 ML CUP SWISH-SPIT SCH ×3 (09:35→17:15)
--- NOTE | 2017-06-12 15:35 | RADRPT ---
EXAM DATE/TIME: 06/12/2017 14:46 [facility] COMPARISON: CHEST SINGLE AP, June 09, 2017, 17:28. INDICATIONS : Patient is short of breath since yesterday. MEDICAL HISTORY : Asthma, Bipolar disorder, Recreational drug abuse. SURGICAL HISTORY : None. ENCOUNTER: Subsequent ACUITY: 4 - 6 days PAIN SCORE: 0/10 LOCATION: Bilateral chest FINDINGS: The heart is enlarged. There is interstitial prominence suggesting congestive failure. There are mini mal bilateral effusions. This is similar to previous dated 06/09/17. The visualized bony structures ar e grossly intact. CONCLUSION: 1. Cardiomegaly and diffuse interstitial prominence suggesting congestive failure. Efren Moran MD on June 12, 2017 at 15:33 Board Certified Radiologist. This report was verified electronically.
--- NOTE | 2017-06-12 18:24 | PD.CARD.PN ---
Subjective Subjective Remarks Doing better, no chest pain, no shortness of breath with the oxygen off Objective Medications Current Medications Medications (Trade) Dose Ordered Sig/Francia Route Start Time Stop Time Status Last Admin (NS Flush) 2 ml UNSCH PRN IV FLUSH 06/07/17 10:30 06/10/17 16:44 (NS Flush) 2 ml BID IV FLUSH 06/07/17 21:00 06/12/17 09:34 (Heparin Inj) 5,000 units Q12H SQ 06/07/17 13:00 06/12/17 12:08 (Narcan Inj) 0.4 mg UNSCH PRN IV 06/07/17 10:30 (Danya-Colace) 1 tab BID PO 06/07/17 21:00 06/11/17 22:18 (Milk Of Magnesia Liq) 30 ml Q12H PRN PO 06/07/17 10:30 (Senokot) 17.2 mg Q12H PRN PO 06/07/17 10:30 (Dulcolax Supp) 10 mg DAILY PRN RECTAL 06/07/17 10:30 (Lactulose Liq) 30 ml DAILY PRN PO 06/07/17 10:30 (Wellbutrin) 75 mg DAILY PO 06/07/17 17:00 06/12/17 09:34 (KlonoPIN) 0.5 mg HS PO 06/07/17 21:00 06/11/17 22:18 (PROzac) 20 mg DAILY PO 06/07/17 17:00 06/12/17 09:34 (Aspirin Chew) 81 mg DAILY CHEW 06/08/17 09:00 06/12/17 09:34 (KCl) 30 meq Q12HR PO 06/08/17 21:00 06/12/17 09:34 Ondansetron HCl 4 mg 4 mg Q8HR PRN IV PUSH 06/09/17 09:00 06/11/17 06:15 (Vancomycin Inj/ NS 250 ml Inj) 250 ml @ 250 mls/hr Q12H IV 06/09/17 17:00 06/12/17 17:16 (KCl) 40 meq DAILY PO 06/09/17 17:45 06/12/17 09:34 (Peridex 0.12% Liq) 15 ml TID SWISH-SPIT 06/10/17 09:00 06/12/17 17:15 Vital Signs / I&O Vital Signs Date Time Temp Pulse Resp B/P Pulse Ox O2 Delivery O2 Flow Rate FiO2 06/12/17 16:02 98.4 71 18 138/76 95 06/12/17 12:29 97.8 63 17 157/98 95 06/12/17 08:36 95 Nasal Cannula 2.00 06/12/17 08:02 98.7 77 17 154/92 95 06/12/17 08:00 69 06/12/17 08:00 Nasal Cannula 2.00 06/12/17 04:00 98.2 76 16 138/86 96 06/12/17 00:00 98.4 64 18 137/76 100 06/11/17 20:00 98.5 74 18 158/94 99 06/11/17 19:56 67 06/11/17 19:30 Nasal Cannula 2.00 I/O 06/11/17 06/11/17 06/11/17 06/12/17 06/12/17 06/12/17 07:00 15:00 23:00 07:00 15:00 23:00 Intake Total 251 ml 362 ml 240 ml 720 ml Balance 251 ml 362 ml 240 ml 720 ml Intake Oral 360 ml 240 ml 720 ml IV Total 251 ml 2 ml # Voids 5 1 3 # Bowel Movements 2 1 1 Physical Exam GENERAL: NAD, AAOx3 SKIN: Warm and dry. HEAD: Atraumatic. Normocephalic. EYES: Pupils equal and round. No scleral icterus. No injection or drainage. ENT: No nasal bleeding or discharge. Mucous membranes pink and moist. NECK: Trachea midline. No JVD. CARDIOVASCULAR: Regular rhythm, tachycardic, no murmurs noted RESPIRATORY: No accessory muscle use. Decreased breath sounds bilaterally GASTROINTESTINAL: Abdomen soft, non-tender, nondistended. Hepatic and splenic margins not palpable. MUSCULOSKELETAL: Extremities without clubbing, cyanosis, or edema. No obvious deformities. NEUROLOGICAL: Awake and alert. No obvious cranial nerve deficits. Motor grossly within normal limits. Five out of 5 muscle strength in the arms and legs. Normal speech. PSYCHIATRIC: Appropriate mood and affect; insight and judgment normal. Laboratory Laboratory Tests Test 06/12/17 06:30 White Blood Count 10.5 TH/MM3 Red Blood Count 4.17 MIL/MM3 Hemoglobin 10.5 GM/DL Hematocrit 33.4 % Mean Corpuscular Volume 80.1 FL Mean Corpuscular Hemoglobin 25.3 PG Mean Corpuscular Hemoglobin 31.6 % Concent Red Cell Distribution Width 13.3 % Platelet Count 217 TH/MM3 Mean Platelet Volume 10.5 FL Neutrophils (%) (Auto) 53.3 % Lymphocytes (%) (Auto) 34.2 % Monocytes (%) (Auto) 10.2 % Eosinophils (%) (Auto) 2.2 % Basophils (%) (Auto) 0.1 % Neutrophils # (Auto) 5.6 TH/MM3 Lymphocytes # (Auto) 3.6 TH/MM3 Monocytes # (Auto) 1.1 TH/MM3 Eosinophils # (Auto) 0.2 TH/MM3 Basophils # (Auto) 0.0 TH/MM3 CBC Comment DIFF FINAL Differential Comment Sodium Level 140 MEQ/L Potassium Level 3.5 MEQ/L Chloride Level 104 MEQ/L Carbon Dioxide Level 25.5 MEQ/L Anion Gap 11 MEQ/L Blood Urea Nitrogen 3 MG/DL Creatinine 0.64 MG/DL Estimat Glomerular Filtration 145 ML/MIN Rate Random Glucose 89 MG/DL Calcium Level 9.4 MG/DL Total Bilirubin 0.4 MG/DL Aspartate Amino Transf 13 U/L (AST/SGOT) Alanine Aminotransferase 21 U/L (ALT/SGPT) Alkaline Phosphatase 79 U/L Total Protein 7.2 GM/DL Albumin 3.0 GM/DL Assessment and Plan Problem List: (1) Opiate or related narcotic overdose (2) Elevated troponin (3) Paroxysmal atrial fibrillation (4) Acute kidney injury (5) Hyperglycemia (6) Urinary tract infection (7) Chest wall pain Assessment and Plan 1) Heroin overdose, possibly laced with fentanyl with pulse ox extremely low per EMS 2) Minimally elevated troponin, secondary to hypoxia/heroin overdose Although 21, should rule out underlying CAD... plan CTA coronary, would attempt to avoid nuclear stress test in a 21 year old.. heart rates now better, will attempt CTA cancelled today due to logistics with the order, will plan for tomorrow morning 3) PAF, CHADSVASc = 1, secondary to heroin overdose Will plan to place on ASA 81mg daily 4) With brown sputum as well as chest pain/SOB, possible aspiration PNA vs pneumonitis? ID following... currently breathing better, better oxygenation... clinically better Vish Coleman DO Jun 12, 2017 18:24
[2017-06-12] MEDS: clonazePAM 0.5 MG TAB PO SCH (21:40)
[2017-06-13] VITALS (8 sets, daily range): BP systolic 122–139; BP diastolic 62–83; PULSE 65–84; RESP 16–20; TEMP 97.4–98.8; O2SAT 94–97
[2017-06-13] MEDS: HEPARIN SODIUM - SQ 10,000 UNITS/ML VIAL SQ SCH ×2 (01:15→12:01)
[2017-06-13] MEDS: VANCOMYCIN INJ 1,000 MG in SODIUM CHLOR 0.9% 250 ML INJ 250 ML IV SCH ×2 (06:07→17:51)
[2017-06-13] MEDS: buPROPion HCL 75 MG TAB PO SCH (08:00)
[2017-06-13] MEDS: POTASSIUM CHLORIDE 10 MEQ CONTROLLED RELEASE TAB PO SCH ×2 (08:00→21:58)
[2017-06-13] MEDS: ASPIRIN 81 MG CHEW TAB CHEW SCH (08:00)
[2017-06-13] MEDS: POTASSIUM CHLORIDE 20 MEQ CONTROLLED RELEASE TAB PO SCH (08:00)
[2017-06-13] MEDS: FLUoxetine HCL 20 MG CAP PO SCH (08:00)
[2017-06-13] MEDS: SODIUM CHLORIDE 0.9% FLUSH 10 ML FLUSH IV FLUSH SCH ×2 (08:01→21:58)
[2017-06-13] MEDS: CHLORHEXIDINE GLUCONATE 0.12% 15 ML CUP SWISH-SPIT SCH ×3 (08:01→17:35)
[2017-06-13] MEDS: DOCUSATE SODIUM 50 MG/SENNA 8.6 MG TAB PO SCH ×2 (08:01→21:00)
[2017-06-13] MEDS: ONDANSETRON HCL 4 MG/2 ML VIAL IV PUSH PRN (08:29)
[2017-06-13] MEDS ORDERED: METOPROLOL TARTRATE 5 MG/5 ML VIAL IV PRN (10:45)
[2017-06-13] MEDS ORDERED: METOPROLOL TARTRATE 50 MG TAB PO SCH (10:45)
[2017-06-13] MEDS: ALPRAZolam 0.5 MG TAB PO SCH ×2 (12:00→17:32)
--- NOTE | 2017-06-13 12:42 | HHI.PR ---
Subjective History of Present Illness Patient seen on 06/12/17 feel weak and tired c/o back pain worse with movement... Leukocytosis resolved. low potassium resolved. need CTA Chest. Review of Systems Constitutional Constitutional: Fatigue, Weakness Pulmonary Respiratory: Coughing Musculoskeletal MS Remarks lower back pain. Vitals/Results Intake & Output 06/12/17 06/12/17 06/13/17 15:00 23:00 07:00 Intake Total 720 ml 600 ml 490 ml Balance 720 ml 600 ml 490 ml Intake Oral 720 ml 600 ml 240 ml IV Total 250 ml # Voids 3 2 0 # Bowel Movements 1 Vital Signs Vital Signs Date Time Temp Pulse Resp B/P Pulse Ox O2 Delivery O2 Flow Rate FiO2 06/13/17 12:23 Nasal Cannula 2.00 06/13/17 12:00 98.6 80 19 138/63 94 06/13/17 08:29 98.8 77 19 139/76 95 06/13/17 08:00 65 06/13/17 08:00 Nasal Cannula 2.00 06/13/17 04:30 98.5 67 16 133/70 95 06/13/17 00:00 97.4 84 16 122/83 97 06/13/17 00:00 97 Nasal Cannula 1.00 06/12/17 20:15 Nasal Cannula 2.00 06/12/17 20:00 98.2 88 16 137/76 97 06/12/17 19:38 73 06/12/17 16:02 98.4 71 18 138/76 95 CBC/BMP: 06/12/17 0630 06/12/17 0630 Physical Exam General General Appearance: No Acute Distress, Comfortable Appearance Remarks obese Eyes Eye Exam: Pupils Equal, Pupils Reactive, Sclera White, Extraocular Movement Intact Throat Throat Exam: Oral Mucosa [place] & Moist, Oral Pharynx Normal Pulmonary Resp Exam: Clear Bilaterally, Breath Sounds Equal, No Distress Cardiology CV Exam: Regular, Normal Sinus Rhythm Gastrointestinal/Abdomen GI Exam: Soft, Non-Tender, Bowel Sounds Present Musculoskeletal MS Exam: Normal Tone Integumentary Skin Exam: Warm, Dry, Intact Extremeties Extremities Exam: No Edema Neurologic Neuro Exam: Awake, Oriented, Speech Clear, Moving All Extremities, No Focal Deficits VTE Prophylaxis VTE Prophylaxis Meds: Heparin PUD Prophylasis PUD Prophylaxis: Protonix Assessment/Plan Assessment/Plan ASSESSMENT/PLAN 1. This is a 21-year-old female who came to the ER diagnosed with loss of consciousness after heroin abuse. The patient got Narcan and after that the patient improved. 2. Hyperglycemia. checked hemoglobin A1C 5.8 and will monitor blood sugar. 3. Acute renal Insufficency..resolved. 4. Elevated troponin. checked serial cardiac enzymes. cardiology input noted. checked UA shows UTI. and CT chest without contrast show pneumonia... sputum positive for MRSA on Vancomycin 6. DVT prophylaxis heparin 5000 units subcutaneous twice a day. 7. GI prophylaxis Protonix 40 milligrams p.o. daily. 8. Hypokalemia resolved. We are going to manage the patient on a daily basis and make recommendation on a daily basis. Check CBC with diff CMP in AM. Discussed Condition with: Patient Sean Bond MD Jun 13, 2017 12:42
--- NOTE | 2017-06-13 12:45 | HHI.PR ---
Subjective History of Present Illness Patient feel weak and tired c/o back pain worse with movement... Leukocytosis resolved. low potassium resolved. getting CTA Chest. Review of Systems Constitutional Constitutional: Fatigue, Weakness Pulmonary Respiratory: Coughing Musculoskeletal MS Remarks lower back pain. Vitals/Results Intake & Output 06/12/17 06/12/17 06/13/17 15:00 23:00 07:00 Intake Total 720 ml 600 ml 490 ml Balance 720 ml 600 ml 490 ml Intake Oral 720 ml 600 ml 240 ml IV Total 250 ml # Voids 3 2 0 # Bowel Movements 1 Vital Signs Vital Signs Date Time Temp Pulse Resp B/P Pulse Ox O2 Delivery O2 Flow Rate FiO2 06/13/17 12:23 Nasal Cannula 2.00 06/13/17 12:00 98.6 80 19 138/63 94 06/13/17 08:29 98.8 77 19 139/76 95 06/13/17 08:00 65 06/13/17 08:00 Nasal Cannula 2.00 06/13/17 04:30 98.5 67 16 133/70 95 06/13/17 00:00 97.4 84 16 122/83 97 06/13/17 00:00 97 Nasal Cannula 1.00 06/12/17 20:15 Nasal Cannula 2.00 06/12/17 20:00 98.2 88 16 137/76 97 06/12/17 19:38 73 06/12/17 16:02 98.4 71 18 138/76 95 CBC/BMP: 06/12/17 0630 06/12/17 0630 Physical Exam General General Appearance: No Acute Distress, Comfortable Appearance Remarks obese Eyes Eye Exam: Pupils Equal, Pupils Reactive, Sclera White, Extraocular Movement Intact Throat Throat Exam: Oral Mucosa [place] & Moist, Oral Pharynx Normal Pulmonary Resp Exam: Clear Bilaterally, Breath Sounds Equal, No Distress Cardiology CV Exam: Regular, Normal Sinus Rhythm Gastrointestinal/Abdomen GI Exam: Soft, Non-Tender, Bowel Sounds Present Musculoskeletal MS Exam: Normal Tone Integumentary Skin Exam: Warm, Dry, Intact Extremeties Extremities Exam: No Edema Neurologic Neuro Exam: Awake, Oriented, Speech Clear, Moving All Extremities, No Focal Deficits VTE Prophylaxis VTE Prophylaxis Meds: Heparin PUD Prophylasis PUD Prophylaxis: Protonix Assessment/Plan Assessment/Plan ASSESSMENT/PLAN 1. This is a 21-year-old female who came to the ER diagnosed with loss of consciousness after heroin abuse. The patient got Narcan and after that the patient improved. 2. Hyperglycemia. checked hemoglobin A1C 5.8 and will monitor blood sugar. 3. Acute renal Insufficency..resolved. 4. Elevated troponin. checked serial cardiac enzymes. cardiology input noted. checked UA shows UTI. and CT chest without contrast show pneumonia... sputum positive for MRSA on Vancomycin 6. DVT prophylaxis heparin 5000 units subcutaneous twice a day. 7. GI prophylaxis Protonix 40 milligrams p.o. daily. 8. Hypokalemia resolved. We are going to manage the patient on a daily basis and make recommendation on a daily basis. Check CBC with diff CMP in AM. Sean Bond MD Jun 13, 2017 12:45
[2017-06-13] MEDS ORDERED: NITROGLYCERIN 0.4 MG SL 25 TABS/BTL SL ONE ×2 (13:51→13:52)
[2017-06-13] MEDS ORDERED: IOHEXOL 350 MG/ML 10 ML VIAL (for RAD DIAG) IV ONE (14:21)
--- NOTE | 2017-06-13 16:52 | RADRPT ---
EXAM DATE/TIME: 06/13/2017 12:40 [facility] COMPARISON: CT THORAX W/O CONTRAST, June 07, 2017, 18:41. INDICATIONS : Evaluate for elevated troponin. IV CONTRAST: 100 cc Omnipaque 350 (iohexol) IV RADIATION DOSE: 10.67 CTDIvol (mGy) MEDICAL HISTORY : Cardiac arrest. SURGICAL HISTORY : None. ENCOUNTER: Initial ACUITY: 4 - 6 days PAIN SCALE: 0/10 LOCATION: Bilateral chest TECHNIQUE: Volumetric scanning was obtained through the heart. Images were acquired on a multislice multiple ro w detector helical scanner timed for acquisition during peak arterial contrast. Images were reconstr ucted using a retrospective gating algorithm including single sector and multi-sector algorithms at m ultiple phases of the cardiac cycle. Images were interpreted using a combination of 2D and 3D visual ization modes including curved planar reformation, thin slab maximum intensity projection and volume rendering. Using automated exposure control and adjustment of the mA and/or kV according to patient size, radiation dose was kept as low as reasonably achievable to obtain optimal diagnostic quality im ages. DICOM format image data is available electronically for review and comparison. FINDINGS: VESSEL ANALYSIS: DOMINANCE: The coronary system is right dominant. LEFT MAIN: Normal vessel without calcification or stenosis. LAD: Normal vessel without calcification or stenosis. CIRCUMFLEX: Normal vessel without calcification or stenosis. RCA: Normal vessel without calcification or stenosis. OTHER: The examination demonstrates extensive perihilar infiltrates and consolidation. Exam is concerning fo r a pneumonia. CONCLUSION: 1. No hemodynamically significant coronary artery disease identified. 2. Extensive bilateral perihilar infiltrates concerning for a pneumonia. Efren Moran MD on June 13, 2017 at 16:44 Board Certified Radiologist. This report was verified electronically.
--- NOTE | 2017-06-13 17:36 | PD.CARD.PN ---
Subjective Subjective Remarks No chest pain No SOB, off oxygen Objective Medications Current Medications Medications (Trade) Dose Ordered Sig/Francia Route Start Time Stop Time Status Last Admin (NS Flush) 2 ml UNSCH PRN IV FLUSH 06/07/17 10:30 06/10/17 16:44 (NS Flush) 2 ml BID IV FLUSH 06/07/17 21:00 06/13/17 08:01 (Heparin Inj) 5,000 units Q12H SQ 06/07/17 13:00 06/13/17 12:01 (Narcan Inj) 0.4 mg UNSCH PRN IV 06/07/17 10:30 (Danya-Colace) 1 tab BID PO 06/07/17 21:00 06/11/17 22:18 (Milk Of Magnesia Liq) 30 ml Q12H PRN PO 06/07/17 10:30 (Senokot) 17.2 mg Q12H PRN PO 06/07/17 10:30 (Dulcolax Supp) 10 mg DAILY PRN RECTAL 06/07/17 10:30 (Lactulose Liq) 30 ml DAILY PRN PO 06/07/17 10:30 (Wellbutrin) 75 mg DAILY PO 06/07/17 17:00 06/13/17 08:00 (KlonoPIN) 0.5 mg HS PO 06/07/17 21:00 06/12/17 21:40 (PROzac) 20 mg DAILY PO 06/07/17 17:00 06/13/17 08:00 (Aspirin Chew) 81 mg DAILY CHEW 06/08/17 09:00 06/13/17 08:00 (KCl) 30 meq Q12HR PO 06/08/17 21:00 06/13/17 08:00 Ondansetron HCl 4 mg 4 mg Q8HR PRN IV PUSH 06/09/17 09:00 06/13/17 08:29 (Vancomycin Inj/ NS 250 ml Inj) 250 ml @ 250 mls/hr Q12H IV 06/09/17 17:00 06/13/17 06:07 (KCl) 40 meq DAILY PO 06/09/17 17:45 06/13/17 08:00 (Peridex 0.12% Liq) 15 ml TID SWISH-SPIT 06/10/17 09:00 06/13/17 12:01 (Xanax) 0.5 mg TID PO 06/13/17 13:00 06/13/17 12:00 (Lopressor Inj) 5 mg Q2M PRN IV 06/13/17 10:45 Vital Signs / I&O Vital Signs Date Time Temp Pulse Resp B/P Pulse Ox O2 Delivery O2 Flow Rate FiO2 06/13/17 16:58 Room Air 06/13/17 16:44 98.6 77 18 131/62 94 06/13/17 12:23 Nasal Cannula 2.00 06/13/17 12:00 98.6 80 19 138/63 94 06/13/17 08:29 98.8 77 19 139/76 95 06/13/17 08:00 65 06/13/17 08:00 Nasal Cannula 2.00 06/13/17 04:30 98.5 67 16 133/70 95 06/13/17 00:00 97.4 84 16 122/83 97 06/13/17 00:00 97 Nasal Cannula 1.00 06/12/17 20:15 Nasal Cannula 2.00 06/12/17 20:00 98.2 88 16 137/76 97 06/12/17 19:38 73 I/O 06/12/17 06/12/17 06/12/17 06/13/17 06/13/17 06/13/17 07:00 15:00 23:00 07:00 15:00 23:00 Intake Total 240 ml 720 ml 600 ml 490 ml 720 ml Balance 240 ml 720 ml 600 ml 490 ml 720 ml Intake Oral 240 ml 720 ml 600 ml 240 ml 720 ml IV Total 250 ml # Voids 1 3 2 0 3 # Bowel Movements 1 1 Physical Exam GENERAL: NAD, AAOx3 SKIN: Warm and dry. HEAD: Atraumatic. Normocephalic. EYES: Pupils equal and round. No scleral icterus. No injection or drainage. ENT: No nasal bleeding or discharge. Mucous membranes pink and moist. NECK: Trachea midline. No JVD. CARDIOVASCULAR: Regular rhythm, tachycardic, no murmurs noted RESPIRATORY: No accessory muscle use. Decreased breath sounds bilaterally GASTROINTESTINAL: Abdomen soft, non-tender, nondistended. Hepatic and splenic margins not palpable. MUSCULOSKELETAL: Extremities without clubbing, cyanosis, or edema. No obvious deformities. NEUROLOGICAL: Awake and alert. No obvious cranial nerve deficits. Motor grossly within normal limits. Five out of 5 muscle strength in the arms and legs. Normal speech. PSYCHIATRIC: Appropriate mood and affect; insight and judgment normal. Assessment and Plan Problem List: (1) Opiate or related narcotic overdose (2) Elevated troponin (3) Paroxysmal atrial fibrillation (4) Acute kidney injury (5) Hyperglycemia (6) Urinary tract infection (7) Chest wall pain Assessment and Plan 1) Heroin overdose, possibly laced with fentanyl with pulse ox extremely low per EMS 2) Minimally elevated troponin, secondary to hypoxia/heroin overdose Although 21, should rule out underlying CAD... CTA of coronaries showing no significant CAD 3) PAF, CHADSVASc = 1, secondary to heroin overdose Will plan to place on ASA 81mg daily 4) With brown sputum as well as chest pain/SOB, possible aspiration PNA vs pneumonitis? ID following... currently breathing better, better oxygenation... clinically better 5) EF 60-65% by echo 6) Cardiovascularly stable for discharge Vish Coleman DO Jun 13, 2017 17:36
--- NOTE | 2017-06-13 18:35 | HHI.IDPN ---
Note Infectious Disease Note Patient feels better. No longer has pain in the chest and upper back when she coughs or takes a deep breath. Cough better. Afebrile. No chills. PAST MEDICAL HISTORY: 1. Asthma in childhood. 2. Bipolar disorder. 3. Anxiety and depression. ALLERGIES: NO KNOWN DRUG ALLERGIES. ANTIBIOTICS: Vancomycin. OBJECTIVE: Vital Signs Date Time Temp Pulse Resp B/P Pulse Ox O2 Delivery O2 Flow Rate FiO2 06/13/17 16:58 Room Air 06/13/17 16:44 98.6 77 18 131/62 94 06/13/17 12:23 Nasal Cannula 2.00 06/13/17 12:00 98.6 80 19 138/63 94 06/13/17 08:29 98.8 77 19 139/76 95 06/13/17 08:00 65 06/13/17 08:00 Nasal Cannula 2.00 06/13/17 04:30 98.5 67 16 133/70 95 06/13/17 00:00 97.4 84 16 122/83 97 06/13/17 00:00 97 Nasal Cannula 1.00 06/12/17 20:15 Nasal Cannula 2.00 06/12/17 20:00 98.2 88 16 137/76 97 06/12/17 19:38 73 Laboratory Tests Test 06/12/17 06:30 White Blood Count 10.5 TH/MM3 Red Blood Count 4.17 MIL/MM3 Hemoglobin 10.5 GM/DL Hematocrit 33.4 % Mean Corpuscular Volume 80.1 FL Mean Corpuscular Hemoglobin 25.3 PG Mean Corpuscular Hemoglobin 31.6 % Concent Red Cell Distribution Width 13.3 % Platelet Count 217 TH/MM3 Mean Platelet Volume 10.5 FL Neutrophils (%) (Auto) 53.3 % Lymphocytes (%) (Auto) 34.2 % Monocytes (%) (Auto) 10.2 % Eosinophils (%) (Auto) 2.2 % Basophils (%) (Auto) 0.1 % Neutrophils # (Auto) 5.6 TH/MM3 Lymphocytes # (Auto) 3.6 TH/MM3 Monocytes # (Auto) 1.1 TH/MM3 Eosinophils # (Auto) 0.2 TH/MM3 Basophils # (Auto) 0.0 TH/MM3 CBC Comment DIFF FINAL Differential Comment Laboratory Tests Test 06/12/17 06:30 Sodium Level 140 MEQ/L Potassium Level 3.5 MEQ/L Chloride Level 104 MEQ/L Carbon Dioxide Level 25.5 MEQ/L Anion Gap 11 MEQ/L Blood Urea Nitrogen 3 MG/DL Creatinine 0.64 MG/DL Estimat Glomerular Filtration 145 ML/MIN Rate Random Glucose 89 MG/DL Calcium Level 9.4 MG/DL Total Bilirubin 0.4 MG/DL Aspartate Amino Transf 13 U/L (AST/SGOT) Alanine Aminotransferase 21 U/L (ALT/SGPT) Alkaline Phosphatase 79 U/L Total Protein 7.2 GM/DL Albumin 3.0 GM/DL Microbiology Date/Time Procedure Status Source Growth 06/08/17 16:00 Gram Stain - Final Complete Sputum Expectorated Sputum 06/08/17 16:00 Sputum Culture - Final Complete S. Aureus Mrsa Beta Strep Not Group A IMAGING: Coronary Angiography CT 06/13/17 0000 Signed Impressions: Service Date/Time: June 12:40 - CONCLUSION: 1. No hemodynamically significant coronary artery disease identified. 2. Extensive bilateral perihilar infiltrates concerning for a pneumonia. Efren Moran MD Chest X-Ray 06/12/17 0000 Signed Impressions: Service Date/Time: Monday, June 12, 2017 14:46 - CONCLUSION: 1. Cardiomegaly and diffuse interstitial prominence suggesting congestive failure. Efren Moran MD Chest CT 06/07/17 0000 Signed Impressions: Service Date/Time: Wednesday, June 07, 2017 18:41 - CONCLUSION: Patchy airspace disease in both lungs with pain perihilar distribution consistent with an inflammatory process. Deangelo Moran MD FACR PHYSICAL EXAMINATION: GENERAL: No acute distress. HEENT: Pupils reactive to light. No icterus. Oropharynx: moist mucosa without visible lesions. NECK: The neck is supple without adenopathy. LUNGS: Decreased breath sounds bilateral. HEART: Regular S1 and S2. No audible murmurs, rubs or gallops. ABDOMEN: Bowel sounds present, soft, obese, nontender. EXTREMITIES: No clubbing or cyanosis or edema. SKIN: No rash. NEUROLOGIC: Nonfocal. PSYCHIATRIC: calm and cooperative. IMPRESSION: 1. Pneumonia MRSA/ group A strep secondary to aspiration in a patient who passed out around the time of using heroin in the form of snorting. 2. Leukocytosis secondary to pneumonia. Improved. 3. Chest pain - improved. RECOMMENDATIONS: 1. Continue Vancomycin today. 2. Okay to discharge on Thursday 06/14 with PO Zyvox 600mg BID x 5 days. Patient notified not to take Prozac while she is on the Zyvox since it is contraindicated. She acknowledges understanding of this. Tom Escobar MD Jun 13, 2017 18:35
[2017-06-13] MEDS ORDERED: ZYVO600T PO (18:36)
[2017-06-13] MEDS: clonazePAM 0.5 MG TAB PO SCH (21:57)
[2017-06-14] VITALS (7 sets, daily range): BP systolic 103–138; BP diastolic 59–82; PULSE 65–82; RESP 16–20; TEMP 98.3–98.6; O2SAT 94–96
[2017-06-14] MEDS: HEPARIN SODIUM - SQ 10,000 UNITS/ML VIAL SQ SCH ×2 (01:14→12:39)
[2017-06-14] MEDS: VANCOMYCIN INJ 1,000 MG in SODIUM CHLOR 0.9% 250 ML INJ 250 ML IV SCH (04:22)
[2017-06-14] MEDS: POTASSIUM CHLORIDE 10 MEQ CONTROLLED RELEASE TAB PO SCH (08:50)
[2017-06-14] MEDS: POTASSIUM CHLORIDE 20 MEQ CONTROLLED RELEASE TAB PO SCH (08:51)
[2017-06-14] MEDS: CHLORHEXIDINE GLUCONATE 0.12% 15 ML CUP SWISH-SPIT SCH ×2 (08:51→12:39)
[2017-06-14] MEDS: buPROPion HCL 75 MG TAB PO SCH (08:51)
[2017-06-14] MEDS: FLUoxetine HCL 20 MG CAP PO SCH (08:51)
[2017-06-14] MEDS: DOCUSATE SODIUM 50 MG/SENNA 8.6 MG TAB PO SCH (08:51)
[2017-06-14] MEDS: ASPIRIN 81 MG CHEW TAB CHEW SCH (08:51)
[2017-06-14] MEDS: SODIUM CHLORIDE 0.9% FLUSH 10 ML FLUSH IV FLUSH SCH (08:51)
[2017-06-14] MEDS: ALPRAZolam 0.5 MG TAB PO SCH ×2 (08:51→12:39)
[2017-06-14] MEDS: ONDANSETRON HCL 4 MG/2 ML VIAL IV PUSH PRN (08:53)
--- NOTE | 2017-06-14 12:41 | PD.CARD.PN ---
Subjective Subjective Remarks No events overnight No chest pain Objective Medications Current Medications Medications (Trade) Dose Ordered Sig/Francia Route Start Time Stop Time Status Last Admin (NS Flush) 2 ml UNSCH PRN IV FLUSH 06/07/17 10:30 06/10/17 16:44 (NS Flush) 2 ml BID IV FLUSH 06/07/17 21:00 06/14/17 08:51 (Heparin Inj) 5,000 units Q12H SQ 06/07/17 13:00 06/14/17 01:14 (Narcan Inj) 0.4 mg UNSCH PRN IV 06/07/17 10:30 (Danya-Colace) 1 tab BID PO 06/07/17 21:00 06/11/17 22:18 (Milk Of Magnesia Liq) 30 ml Q12H PRN PO 06/07/17 10:30 (Senokot) 17.2 mg Q12H PRN PO 06/07/17 10:30 (Dulcolax Supp) 10 mg DAILY PRN RECTAL 06/07/17 10:30 (Lactulose Liq) 30 ml DAILY PRN PO 06/07/17 10:30 (Wellbutrin) 75 mg DAILY PO 06/07/17 17:00 06/14/17 08:51 (KlonoPIN) 0.5 mg HS PO 06/07/17 21:00 06/13/17 21:57 (PROzac) 20 mg DAILY PO 06/07/17 17:00 06/14/17 08:51 (Aspirin Chew) 81 mg DAILY CHEW 06/08/17 09:00 06/14/17 08:51 (KCl) 30 meq Q12HR PO 06/08/17 21:00 06/14/17 08:50 Ondansetron HCl 4 mg 4 mg Q8HR PRN IV PUSH 06/09/17 09:00 06/14/17 08:53 (Vancomycin Inj/ NS 250 ml Inj) 250 ml @ 250 mls/hr Q12H IV 06/09/17 17:00 06/14/17 04:22 (KCl) 40 meq DAILY PO 06/09/17 17:45 06/14/17 08:51 (Peridex 0.12% Liq) 15 ml TID SWISH-SPIT 06/10/17 09:00 06/14/17 08:51 (Xanax) 0.5 mg TID PO 06/13/17 13:00 06/14/17 08:51 (Lopressor Inj) 5 mg Q2M PRN IV 06/13/17 10:45 Vital Signs / I&O Vital Signs Date Time Temp Pulse Resp B/P Pulse Ox O2 Delivery O2 Flow Rate FiO2 06/14/17 12:02 98.4 76 20 115/59 95 06/14/17 09:37 72 06/14/17 09:37 Room Air 06/14/17 08:00 98.6 65 18 135/64 94 06/14/17 04:00 98.3 73 20 119/67 96 06/14/17 00:16 98.5 65 20 138/82 94 06/13/17 20:45 Room Air 06/13/17 20:03 67 06/13/17 20:00 98.3 72 20 124/76 94 06/13/17 16:58 Room Air 06/13/17 16:44 98.6 77 18 131/62 94 I/O 06/13/17 06/13/17 06/13/17 06/14/17 06/14/17 06/14/17 07:00 15:00 23:00 07:00 15:00 23:00 Intake Total 490 ml 720 ml Balance 490 ml 720 ml Intake Oral 240 ml 720 ml IV Total 250 ml # Voids 0 3 1 1 Physical Exam GENERAL: NAD, AAOx3 SKIN: Warm and dry. HEAD: Atraumatic. Normocephalic. EYES: Pupils equal and round. No scleral icterus. No injection or drainage. ENT: No nasal bleeding or discharge. Mucous membranes pink and moist. NECK: Trachea midline. No JVD. CARDIOVASCULAR: Regular rhythm, tachycardic, no murmurs noted RESPIRATORY: No accessory muscle use. Decreased breath sounds bilaterally GASTROINTESTINAL: Abdomen soft, non-tender, nondistended. Hepatic and splenic margins not palpable. MUSCULOSKELETAL: Extremities without clubbing, cyanosis, or edema. No obvious deformities. NEUROLOGICAL: Awake and alert. No obvious cranial nerve deficits. Motor grossly within normal limits. Five out of 5 muscle strength in the arms and legs. Normal speech. PSYCHIATRIC: Appropriate mood and affect; insight and judgment normal. Assessment and Plan Problem List: (1) Opiate or related narcotic overdose (2) Elevated troponin (3) Paroxysmal atrial fibrillation (4) Acute kidney injury (5) Hyperglycemia (6) Urinary tract infection (7) Chest wall pain Assessment and Plan 1) Heroin overdose, possibly laced with fentanyl with pulse ox extremely low per EMS 2) Minimally elevated troponin, secondary to hypoxia/heroin overdose CTA coronary negative for coronary artery disease 3) PAF, CHADSVASc = 1, secondary to heroin overdose Will plan to place on ASA 81mg daily 4) EF 60-65% by echo 5) Cardiovascularly stable for discharge, will see PRN call with questions Vish Coleman DO Jun 14, 2017 12:41
--- NOTE | 2017-06-14 16:40 | HHI.PR ---
Subjective History of Present Illness Patient feel weak and tired c/o back pain worse with movement... Leukocytosis resolved. low potassium resolved. S/P CTA coronary negative for coronary artery disease Review of Systems Constitutional Constitutional: Fatigue, Weakness Pulmonary Respiratory: Coughing Musculoskeletal MS Remarks lower back pain. Vitals/Results Intake & Output 06/13/17 06/13/17 06/14/17 14:59 22:59 06:59 Intake Total 720 ml Balance 720 ml Intake Oral 720 ml # Voids 3 1 1 Vital Signs Vital Signs Date Time Temp Pulse Resp B/P Pulse Ox O2 Delivery O2 Flow Rate FiO2 06/14/17 16:00 98.5 82 16 103/70 95 06/14/17 12:44 Room Air 06/14/17 12:02 98.4 76 20 115/59 95 06/14/17 09:37 72 06/14/17 09:37 Room Air 06/14/17 08:00 98.6 65 18 135/64 94 06/14/17 04:00 98.3 73 20 119/67 96 06/14/17 00:16 98.5 65 20 138/82 94 06/13/17 20:45 Room Air 06/13/17 20:03 67 06/13/17 20:00 98.3 72 20 124/76 94 06/13/17 16:58 Room Air 06/13/17 16:44 98.6 77 18 131/62 94 CBC/BMP: 06/12/17 0630 06/12/17 0630 Physical Exam General General Appearance: No Acute Distress, Comfortable Appearance Remarks obese Eyes Eye Exam: Pupils Equal, Pupils Reactive, Sclera White, Extraocular Movement Intact Throat Throat Exam: Oral Mucosa Patterson Tract & Moist, Oral Pharynx Normal Pulmonary Resp Exam: Clear Bilaterally, Breath Sounds Equal, No Distress Cardiology CV Exam: Regular, Normal Sinus Rhythm Gastrointestinal/Abdomen GI Exam: Soft, Non-Tender, Bowel Sounds Present Musculoskeletal MS Exam: Normal Tone Integumentary Skin Exam: Warm, Dry, Intact Extremeties Extremities Exam: No Edema Neurologic Neuro Exam: Awake, Oriented, Speech Clear, Moving All Extremities, No Focal Deficits VTE Prophylaxis VTE Prophylaxis Meds: Heparin PUD Prophylasis PUD Prophylaxis: Protonix Assessment/Plan Assessment/Plan ASSESSMENT/PLAN 1. This is a 21-year-old female who came to the ER diagnosed with loss of consciousness after heroin abuse. The patient got Narcan and after that the patient improved. 2. Hyperglycemia. checked hemoglobin A1C 5.8 and will monitor blood sugar. 3. Acute renal Insufficency..resolved. 4. Elevated troponin. checked serial cardiac enzymes. cardiology input noted... S/P CTA coronary negative for coronary artery disease checked UA shows UTI. and CT chest without contrast show pneumonia... sputum positive for MRSA on Vancomycin 6. DVT prophylaxis heparin 5000 units subcutaneous twice a day. 7. GI prophylaxis Protonix 40 milligrams p.o. daily. 8. Hypokalemia resolved. Ok to DC Per cardiology and ID ok to dc home today. f/u with pcp/ cardiology/ ID 1 week. Discussed Condition with: Patient Sean Bond MD Jun 14, 2017 16:39
--- NOTE | 2017-06-16 19:15 | MD ---
cc: SEAN IYER MD ADMISSION DATE: 06/07/2017 DISCHARGE DATE: 06/14/2017 DISPOSITION: Okay to discharge the patient home. CONDITION AT THE TIME OF DISCHARGE: Satisfactory. DISCHARGE ACTIVITY: As tolerated. DISCHARGE DIET: Cardiac diet. ALLERGIES: NO KNOWN DRUG ALLERGIES. DISCHARGE MEDICATIONS: Include: 1. Zyvox 600 milligrams twice a day for five days. 2. Xanax 0.5 milligrams p.o. q. 8-hours PRN anxiety. 3. Bupropion 75 milligrams p.o. daily. 4. Klonopin 0.5 milligrams p.o. at bedtime. 5. Fluoxetine 20 milligrams p.o. daily. FOLLOW UP: The patient was advised to follow with primary care physician, infectious disease and cardiology. ADMITTING DIAGNOSIS: 1. Loss of consciousness after heroin abuse. The patient was advised to discontinue heroin abuse. The patient got Narcan and her condition improved. 2. Hyperglycemia with a hemoglobin of 5.8. 3. Acute renal insufficiency, which resolved. 4. Elevated troponin. Cardiology saw the patient. CT angiogram of the chest was done, which was negative. 5. Hypokalemia. 6. Paroxysmal atrial fibrillation. The patient has a [id number] score of 1 so was started on aspirin 81 milligrams p.o. daily. Infectious disease saw the patient. 7. The patient had sputum MRSA positive and also Beta Strep group A, which was sensitive to Vancomycin. The patient's CT chest was done and showed patchy airspace disease in both lungs with perihilar consistent with inflammatory process. The patient's chest x-ray was done and shows new bilateral opacities. The differential diagnosis includes pulmonary edema, which may be noncardiogenic and diffuse pneumonia could have this appearance. Chest x-ray done shows cardiomegaly and diffuse interstitial prominence suggesting congestive heart failure. Coronary angiography CT was done and showed no hemodynamically significant coronary artery disease identified, extensive bilateral perihilar infiltrate concerning for pneumonia. Blood culture done shows no growth in five days. Hemoglobin was 12.0, decreased down to 10.5 and remained stable. She had mild hypokalemia during her hospital stay which resolved. resolved. Urinalysis was done and showed moderate leukocyte esterase with 20 WBCs, so the patient had a urinary tract infection. The patient was given antibiotic. The patient had a pneumonia with MRSA group A Strep secondary to aspiration in a patient who passed out around the time of using heroin in the form of snorting and the leukocytosis was secondary to pneumonia. Please see further details in the medical record. Sean Iyer MD EA/EVELYN /5:51 PM /7:11 PM
== END 2017-06-14 17:13 | disposition home or self-care (01) | DRG 917 ==
LOC: NEPE 05:22 → NEDA 10:23 → N04A 13:37
PROVIDERS: ADMIT Family Medicine; ATTEND Family Medicine
DX: T40.2X1A Poisoning by other opioids, accidental (unintentional), initial encounter (principal); J69.0 Pneumonitis due to inhalation of food and vomit; J15.212 Pneumonia due to Methicillin resistant Staphylococcus aureus; N17.9 Acute kidney failure, unspecified; I95.9 Hypotension, unspecified; I48.0 Paroxysmal atrial fibrillation; F31.9 Bipolar disorder, unspecified; T40.1X1A Poisoning by heroin, accidental (unintentional), initial encounter; F11.10 Opioid abuse, uncomplicated; J45.909 Unspecified asthma, uncomplicated; Y92.9 Unspecified place or not applicable; F41.9 Anxiety disorder, unspecified; G47.00 Insomnia, unspecified; R09.02 Hypoxemia; R74.8 Abnormal levels of other serum enzymes; R73.9 Hyperglycemia, unspecified; F12.10 Cannabis abuse, uncomplicated; F17.210 Nicotine dependence, cigarettes, uncomplicated; D64.9 Anemia, unspecified; E66.9 Obesity, unspecified; E87.6 Hypokalemia; M54.9 Dorsalgia, unspecified; R55 Syncope and collapse
CPT/HCPCS: 71010; 71250; 75574; 76937; 80048; 80053; 80076; 80202; 80307; 81001; 82550; 82552; 82948; 83036; 84443; 84484; 84702; 85025; 85027; 86403; 87040; 87070; 87086; 87147; 87186; 87205; 93005; 93306; 94640; 94664; J0696; J1644; J1815; J2310; J2405; J3370; J7030; J7050; Q9967

== ENCOUNTER 2017-10-08 11:12 | Emergency (ER) | payer BC, MEDICAID ==
[~2017-10-08 11:12] MED LIST changes: -CEPH-460 PO; -IBUP800T23 PO; -PHEN0.4T PO; +ZYVO600T PO
[2017-10-08 11:18] VITALS: BP 141/87; PULSE 97; RESP 18; TEMP 98.7; O2SAT 99
[2017-10-08 12:35] LABS: AUTOMATED NEUTROPHIL # 10.7 TH/MM3 (1.8-7.7); BASOPHIL % 0.1 % (0.0-2.0); EOSINOPHIL % 0.1 % (0.0-4.0); HEMATOCRIT 34.5 % (35.0-46.0); HEMO FLAGS DIFF FINAL; LYMPH % 14.3 % (9.0-44.0); LYMPHOCYTE # 1.9 TH/MM3 (1.0-4.8); MEAN CELL VOLUME 81.5 FL (80.0-100.0); MEAN CORPUSCULAR HEMOGLOBIN 26.4 PG (27.0-34.0); MEAN CORPUSCULAR HGB CONC 32.4 % (32.0-36.0); MONO % 5.3 % (0.0-8.0); NEUT % 80.2 % (16.0-70.0); PLATELET COUNT 158 TH/MM3 (150-450); RED BLOOD COUNT 4.23 MIL/MM3 (4.00-5.30); RED CELL DISTRIBUTION WIDTH 13.1 % (11.6-17.2); WHITE BLOOD COUNT 13.4 TH/MM3 (4.0-11.0)
--- NOTE | 2017-10-08 12:52 | PD ---
HPI Chief Complaint: Syncope/Near-Syncope Time Seen by Provider: 11:56 Travel History International Travel<30 days: No Contact w/Intl Traveler<30days: No Traveled to known affect area: No History of Present Illness HPI So 22 year-old woman about 16 weeks presents to the emergency department after syncopal episode last night. 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 She states that last sign toward the end of her shift she felt lightheaded, had room spinning foggy vision and some slight headache and then passed out landing on her butt. She was out for just a brief moment. She denies hitting her head. She states since that time she still feels a little foggy. This is her first . She follows with Dr. Montesinos. She denies any chest pain or trouble breathing. She is a history of anemia but no other complaints. No vaginal bleeding, vaginal discharge, or other symptoms. History Past Medical History Narrative Medical Anemia Arthritis LMP: 06/20/17 Menopausal: No : 1 Para: 0 Past Surgical History Surgical History: No Previous Surgery Social History Alcohol Use: No Tobacco Use: No Allergies-Medications (Allergen,Severity, Reaction): Coded Allergies: *MDRO Multi-Drug Resistant Organism (Verified Adverse Reaction, Unknown, 10/08/17) MRSA (sputum) 06/08/17 Reported Meds & Prescriptions Reported Meds & Active Scripts Active No Active Prescriptions or Reported Medications Review of Systems Except as stated in HPI: all other systems reviewed are Neg Physical Exam Narrative GENERAL: Well-appearing 22 year-old woman, no acute distress. SKIN: Focused skin assessment warm/dry. HEAD: Atraumatic. Normocephalic. EYES: Pupils equal and round. No scleral icterus. No injection or drainage. ENT: No nasal bleeding or discharge. Mucous membranes pink and moist. NECK: Trachea midline. No JVD. CARDIOVASCULAR: Regular rate and rhythm. No murmur appreciated. RESPIRATORY: No accessory muscle use. Clear to auscultation. Breath sounds equal bilaterally. GASTROINTESTINAL: Abdomen soft, non-tender, nondistended. Hepatic and splenic margins not palpable. MUSCULOSKELETAL: No obvious deformities. No clubbing. No cyanosis. No edema. NEUROLOGICAL: Awake and alert. No obvious cranial nerve deficits. Motor grossly within normal limits. Normal speech. PSYCHIATRIC: Appropriate mood and affect; insight and judgment normal. Data Data Last Documented VS Vital Signs Date Time Temp Pulse Resp B/P (MAP) Pulse Ox O2 Delivery O2 Flow Rate FiO2 10/08/17 11:45 Room Air 10/08/17 11:18 98.7 97 18 141/87 (105) 99 Orders Orders Ed Poc Ultrasound (10/08/17 11:57) Electrocardiogram (10/08/17 ) Complete Blood Count With Diff (10/08/17 12:05) Labs Laboratory Tests Test 10/08/17 12:10 White Blood Count 13.4 TH/MM3 Red Blood Count 4.23 MIL/MM3 Hemoglobin 11.2 GM/DL Hematocrit 34.5 % Mean Corpuscular Volume 81.5 FL Mean Corpuscular Hemoglobin 26.4 PG Mean Corpuscular Hemoglobin Concent 32.4 % Red Cell Distribution Width 13.1 % Platelet Count 158 TH/MM3 Mean Platelet Volume 10.5 FL Neutrophils (%) (Auto) 80.2 % Lymphocytes (%) (Auto) 14.3 % Monocytes (%) (Auto) 5.3 % Eosinophils (%) (Auto) 0.1 % Basophils (%) (Auto) 0.1 % Neutrophils # (Auto) 10.7 TH/MM3 Lymphocytes # (Auto) 1.9 TH/MM3 Monocytes # (Auto) 0.7 TH/MM3 Eosinophils # (Auto) 0.0 TH/MM3 Basophils # (Auto) 0.0 TH/MM3 CBC Comment DIFF FINAL Differential Comment MDM Medical Decision Making Medical Screen Exam Complete: Yes Emergency Medical Condition: Yes Interpretation(s) My review of EKG: Normal sinus rhythm at a rate of 86, normal axis, normal intervals, no acute ischemia. CBC: Mild leukocytosis, mild anemia. Differential Diagnosis Syncope, anemia, vasovagal episode, PE, arrhythmia, other Narrative Course Medical decision-making 22-year-old presents emergent department after syncopal episode. She just started working overnight. She has premonitory lightheadedness. No chest pain trouble breathing or other evidence of PE. EKG is unremarkable. Diagnosis Primary Impression: Syncope Additional Instructions: Continue vitamins. Drink plenty fluids stay well-hydrated. Return to the emergency department for any new or worsening symptoms. Med/Other Pt SpecificInfo: No Change to Meds Scripts No Active Prescriptions or Reported Meds Disposition: 01 DISCHARGE HOME Condition: Stable Jim Dickens MD 7, 2017 12:52
[2017-10-08 13:00] VITALS: BP 132/78
--- NOTE | 2017-10-09 10:03 | EKG ---
Date Performed: 10/08/2017 Time Performed: 12:17:40 PTAGE: 22 years EKG: Sinus rhythm NORMAL ECG PREVIOUS TRACING : 06/07/2017 10.13 DOCTOR: Jim Donato Interpretating Date/Time 10/09/2017 10:02:50
== END 2017-10-08 13:02 | disposition home or self-care (01) ==
LOC: NEPC 11:12
DX: R55 Syncope and collapse (principal); R42 Dizziness and giddiness; D72.829 Elevated white blood cell count, unspecified; D64.9 Anemia, unspecified; M19.90 Unspecified osteoarthritis, unspecified site
CPT/HCPCS: 85025; 93005

== ENCOUNTER 2017-12-16 09:13 | Emergency (ER) | payer BC, MEDICAID ==
--- NOTE | 2017-12-16 09:49 | PD ---
HPI Chief Complaint 26 weeks and and 2 days Reduced movements Date Seen: Dec 16, 2017 Time Seen: 09:30 Travel History International Travel<30 Days: No Contact w/Intl Traveler<30Days: No Known Affected Area: No History of Present Illness HPI Pt is a 22 yo at 26 weeks and 2 days. [facility] 03-22-[address] Montesinos. Care previously uncomplicated. Pt presents with c/o not feeling any movements since 19:00 last night. No vaginal bleeding or discharge. No fevers or chills. Patient reports some intermittent flank pain past 2 months. Weeks Gestation: 26 Para: 0 : 1 History Past Medical History Medical History: Denies Significant Hx Obstetric History Obstetric History primigravida Past Surgical History Surgical History: No Previous Surgery Family History Family History: Negative Social History Alcohol Use: No Tobacco Use: No Substance Abuse: No Allergies-Medications (Allergen,Severity, Reaction): Coded Allergies: *MDRO Multi-Drug Resistant Organism (Verified Adverse Reaction, Unknown, 10/08/17) MRSA (sputum) 06/08/17 Home Meds No Active Prescriptions or Reported Meds Review of Systems Except as stated in HPI: all other systems reviewed are Neg Physical Exam Narrative GENERAL: Well-nourished, well-developed patient. SKIN: Warm and dry. HEAD: Normocephalic and atraumatic. EYES: No scleral icterus. No injection or drainage. ENT: No nasal drainage noted. Mucous membranes pink. Airway patent. NECK: Supple, trachea midline. No JVD. CARDIOVASCULAR: Regular rate and rhythm without murmurs, gallops, or rubs. RESPIRATORY: Breath sounds equal bilaterally. No accessory muscle use. BREASTS: Bilateral exam showed no masses , no retractions, no nipple discharge. ABDOMEN/GI: Abdomen soft, non-tender, bowel sounds present, no rebound, no guarding SOFT, NON TENDER, GRAVID Gravid to [26] weeks size Fundal Height: [26] GENITOURINARY: Uterine Contractions: [-] FHT's: Category: [] Baseline: [130s] patient now reports feeling movements Reactive: [-] Variability: [moderate] Decels: [none] EXTREMITIES: No cyanosis or edema. BACK: Nontender without obvious deformity. No CVA tenderness. NEUROLOGICAL: Awake and alert. Motor and sensory grossly within normal limits. Five out of 5 muscle strength in all muscle groups. Normal speech. Data Data Vital Signs Reviewed: Yes MDM Diagnosis Diagnosis: Primary Impression: with 26 completed weeks gestation Additional Impressions: Decreased movement movement present Scripts No Active Prescriptions or Reported Meds Josiah Ferguson MD Dec 16, 2017 09:49
== END 2017-12-16 10:49 | disposition home or self-care (01) ==
LOC: HOBED 09:13
DX: Z03.79 Encounter for other suspected maternal and fetal conditions ruled out (principal); O36.8120 Decreased fetal movements, second trimester, not applicable or unspecified; Z3A.26 26 weeks gestation of pregnancy
CPT/HCPCS: 99284